=== PATIENT | male | born 1950 | race Caucasian/White ===

== ENCOUNTER 2021-04-21 23:19 | Inpatient (IN) | payer MEDICARE, MEDICAID ==
--- NOTE | 2021-04-21 23:30 | HISTORY & PHYSICAL EXAMINATION ---
Chief Complaint - Chief Complaint Chief Complaint: Nausea/vomiting. History of Present Illness - Admitted From Admitted From:: [facility] - History Obtained From Records Reviewed: Yes History obtained from: Patient, ER Physician from OS, Outside records - History of Present Illness HPI Comment/Other: This is a 78-year-old male with a past medical history significant for type 2 diabetes mellitus, hypertension, coronary artery disease, CKD who presented to an outside hospital today complaining of fevers and chills. He reportedly complained of dyspnea as well and the initial concern was for pneumonia. He was given ceftriaxone and azithromycin empirically. Imaging revealed no evidence of pneumonia and CT of the chest, abdomen, and pelvis revealed no acute abnormalities. His urinalysis was also unremarkable. The patient does have chronic bilateral lower extremity edema and wounds but these appear to be more erythematous today and indurated. The erythema is new for the patient and the concern was for cellulitis as the source of his infection as he presented with a fever and elevated white count of 20,000. He was then given vancomycin. His renal function was at baseline and his lactic acid within normal limits. Given there were no beds available at the outside hospital, the patient was transferred here for further management. The patient currently thousand he feels better compared to yesterday. He states he came and because of nausea and vomiting which began yesterday morning at 7 AM when he woke up. He also had left lower quadrant abdominal pain. He reports his last bowel movement was 2 days ago. He currently reports no more emesis. He does not feel short of breath and this also began over the past day or so. Denies any chest pain. He does report fever as well as chills and rigors at home. Denies any dysuria, hematuria. The only thing he has noticed over the past few days that his right leg became more erythematous especially over his calf. He states both of his legs are chronically edematous and can be erythematous at times but this is worse than usual. He does take Lasix at home He continues to smoke a pack a day and has been doing so for over 50 years. He was drinking alcohol on a regular basis up until a few months ago. He is not sure if he has cirrhosis but states he has been told he has liver problems in the past. He said he has a history of bladder cancer but this is in remission. He also tells me that he had 2 stents placed earlier this year at [facility] in [place] and that he also suffered from a cardiac arrest during that hospitalization. He does have diabetes but is not on insulin at home. We discussed goals of care and he would like to be a full code. History - Past Medical History Cardiovascular: reports: Congestive heart failure, Hypertension, Coronary artery disease, Peripheral Vascular Disease, Atrial fibrillation Endocrine/Autoimmune: reports: Type 2 diabetes GI: reports: Cirrhosis, Diverticulitis : reports: Renal insuffiency, Other (History of bladder cancer.) - Past Surgical History General: reports: Appendectomy Cardiovascular: reports: Coronary stent, Cardiac catheterization - Family & Social History Family History Comment/Other: He reports no family history to his knowledge. Living arrangement: At home Living Situation: With friend(s) Social History Notes: He reports living at home with a friend. He continues to smoke a pack a day. He has been doing this for over 50 years. He did drink 1/5 of liquor on a daily basis but quit a few months ago. He was doing this for about 30 years. Review of Systems - Constitutional Constitutional: reports: Fever, Chills - Ears, Nose & Throat Ears, Nose & Throat: denies: Nasal discharge, Nasal congestion - Cardiovascular Cariovascular: reports: Edema. denies: Chest pain, Lightheadedness, Decr. exercise tolerance - Respiratory Respiratory: reports: Cough, SOB at rest, SOB with exertion - Gastrointestinal Gastrointestinal: reports: Abdominal pain, Nausea, Vomiting. denies: Constipation, Diarrhea - Genitourinary Genitourinary: denies: Dysuria, Frequency, Urgency - Integumentary Integumentary: reports: Lesions, Pigment changes - Neurological Neurological: denies: General weakness, Focal weakness, Dizziness - All Other Systems All Other Systems: reports: Reviewed and negative Prior Level of Functionality: He is independent with his ADLs. Exam - Vital Signs Reviewed Vital Signs: Yes - Physical Exam General Appearance: positive: No acute distress, Alert Eyes Bilateral: positive: Normal inspection, Conjunctivae nml ENT: positive: ENT inspection nml Neck: positive: Nml inspection Respiratory: positive: No respiratory distress, Other (Diminished in the bases.). negative: Wheezes, Rales Cardiovascular: positive: Irregularly irregular. negative: Tachycardia, Systolic murmur Abdomen: positive: Nml bowel sounds, No distention, Tenderness (Left lower quadrant). negative: Guarding, Rebound Skin: positive: Warm, Dry, Other (There is chronic venous stasis changes over his bilateral lower extremities. There is also an area of erythema over the medial aspect of the right calf that is indurated, warm and tender to touch. Erythema is also present over the anterior aspect of the left lower extremity below the knee.) Extremities: positive: Pedal edema (+2 pitting edema in the bilateral lower extremities), Other (There are multiple small ulcerations over his bilateral lower extremities.) Neurologic/Psychiatric: positive: Motor nml. negative: Disoriented to person, Disoriented to place, Disoriented to time Sepsis Event Note (H) - Evaluation Current Stage of Sepsis: Sepsis Possible source of Sepsis: positive: Skin/soft tissue - Sepsis Criteria Sepsis Criteria: Recorded Temperature greater than 38.3C or Less than 36C, WBC count greater than 12,000 or less than 4000 Conclusion/Plan - Problem List (1) Sepsis Conclusion/Plan: This appears to be secondary to the cellulitis of the lower extremities. He presented with fever, leukocytosis. CT of the chest, abdomen, and pelvis revealed no acute abnormalities. His urinalysis did not suggest infection. Given his cellulitis appears to be purulent, we will keep him on vancomycin. He received ceftriaxone and azithromycin initially at the outside hospital as there was concern for pneumonia as he presented with dyspnea but imaging did not suggest this. We will therefore keep him on vancomycin alone. We will follow up blood cultures from the outside hospital. If these are positive then we will need to repeat blood cultures here. Trend his CBC. Check CRP. We will not administer further IV fluids given he is hypertensive and his lactic acid was within normal limits. He is also quite edematous. (2) Cellulitis of both lower extremities Conclusion/Plan: This appears to be the cause of his sepsis. He appears to have present cellulitis of the bilateral lower extremities although this appears worse in his right lower extremity. He received vancomycin at the outside hospital which we will continue. We will check a CRP and trend this. Follow-up of outside hospital blood cultures. Will order ultrasound of the right lower extremity to evaluate for potential abscess. (3) Nausea and vomiting Conclusion/Plan: Suspect this is related to the sepsis and underlying infection. He did undergo CT of the abdomen and pelvis at the outside hospital which showed no acute abnormalities. There was diverticulosis without diverticulitis. He also did have several mildly prominent mid small bowel segments but there was no evidence of obstruction. We will continue him on a diet and use Zofran as needed. (4) CKD (chronic kidney disease) Conclusion/Plan: He has CKD likely secondary to his type 2 diabetes mellitus. His creatinine is 1.8 which is around his baseline. We will monitor his renal function while he is on IV antibiotics. Qualifiers: Chronic kidney disease stage: stage 3 (moderate) (5) Atrial fibrillation Conclusion/Plan: His rate is currently in the low 100s. We will resume his home carvedilol and anticoagulation. If he remains tachycardic we can consider increasing his carvedilol. (6) Coronary artery disease Conclusion/Plan: He had stenting in July of this year at [facility] in [place]. We will continue anticoagulation with Eliquis per pharmacy policy although he is on Xarelto at home. We will continue aspirin daily as well as Lipitor. Troponin was within normal limits at outside hospital and EKG did not suggest ischemia. (7) Diastolic CHF Conclusion/Plan: BNP at outside hospital was over [address] did not reveal any pulmonary edema. He still did have a right pleural effusion. He is amatory now +2 but given he is septic, we will hold off on diuresis. We will also hold off on IV fluids given he is hypertensive without evidence of hypoperfusion. He will need to be diuresed at some point during his hospitalization. Qualifiers: Heart failure chronicity: chronic Qualified Code(s): I50.32 - Chronic diastolic (congestive) heart failure (8) COPD (chronic obstructive pulmonary disease) Conclusion/Plan: Stable and not in exacerbation. We will continue with albuterol as needed. (9) Hypertension Conclusion/Plan: He has been hypertensive at the outside hospital with systolics in the 150s. We will resume his home carvedilol, lisinopril, hydralazine. We will hold off on amlodipine at this time given his chronic lower extremity edema as this may be a contributing factor. (10) Type 2 diabetes mellitus Conclusion/Plan: He is on glipizide at home. His glucose was less than 200 at the outside hospital. We will start him on sliding scale and consider adding Lantus if necessary. Carb controlled diet. - Lab Results Lab results reviewed: Yes Other Lab Results: I reviewed the labs and the outside hospital. - Diagnostic Imaging Results Diagnostic Imaging Results: positive: Final report reviewed - EKG Results EKG Interpreted Independently: Yes EKG Comparison: No prior EKG EKG Findings: EKG reveals a tribulation with nonspecific ST segment changes. His rate was 105. Core Measures - Anticipated LOS I expect patient to be DC'd or transferred within 96 hours.: Yes - Issues Hospital Issues and Management Plan: 70-year-old male who presented to outside hospital found to have sepsis secondary to cellulitis of the lower extremities. He will be admitted for IV antibiotics as well as to trend his white count and follow-up cultures. - DVT/VTE - Prophylaxis VTE/DVT Device ordered at admit?: No Not Ordered - Medical Reason: Contraindicated VTE/DVT Prophylaxis med ordered at admit?: Yes
[2021-04-21] MEDS ORDERED: LACTATED RINGERS 1,000 ML IV SCH (23:45)
[2021-04-22] MEDS: SODIUM CHLORIDE FLUSH 0.9% 10 ML SYRINGE IVP SCH ×4 (01:23→23:54)
[2021-04-22] MEDS ORDERED: ONDANSETRON 4 MG/2 ML VIAL IVP PRN (01:59)
[2021-04-22] MEDS ORDERED: ONDANSETRON ODT 4 MG TABLET TL PRN (01:59)
[2021-04-22] MEDS ORDERED: VANCOMYCIN INJ 2 GM in SODIUM CHLORIDE 0.9% 500 ML IV SCH (03:00)
[2021-04-22] MEDS: oxyCODONE 5 MG TABLET PO PRN ×4 (03:06→19:30)
[2021-04-22] MEDS: ACETAMINOPHEN 325 MG TABLET PO PRN ×4 (03:06→23:54)
[2021-04-22] MEDS: hydrALAZINE 25 MG TABLET PO SCH ×3 (05:07→21:21)
[2021-04-22] MEDS: MORPHINE 2 MG/ML CARPUJECT IVP PRN ×5 (05:08→23:53)
[2021-04-22 06:14] LABS: BASOPHILS % (AUTO) 0.2 %; EOSINOPHILS % (AUTO) 0.1 %; HCT - HEMATOCRIT 30.4 % (42.0-52.0); HGB - HEMOGLOBIN 9.8 g/dL (14.0-18.0); LYMPHOCYTES # (AUTO) 0.6 10^3/uL (1.5-3.5); LYMPHOCYTES % (AUTO) 4.6 %; MEAN CORPUSCULAR HEMOGLOBIN 26.4 pg (27.0-31.0); MEAN CORPUSCULAR HGB CONC 32.2 g/dL (32.0-36.0); MEAN CORPUSCULAR VOLUME 81.9 fL (80.0-94.0); MEAN PLATELET VOLUME 9.9 fL (7.4-11.4); MONOCYTES # (AUTO) 0.9 10^3/uL (0.0-1.0); MONOCYTES % (AUTO) 7.2 %; NEUTROPHILS # (AUTO) 10.8 10^3/uL (1.5-6.6); NEUTROPHILS % (AUTO) 87.2 %; PLT - PLATELET COUNT 181 10^3/uL (130-450); RED BLOOD COUNT 3.71 10^6/uL (4.70-6.10); RED CELL DISTRIBUTION WIDTH 15.2 % (12.0-15.0); WHITE BLOOD COUNT 12.3 x10^3/uL (4.8-10.8)
[2021-04-22 06:48] LABS: CRP - C-REACTIVE PROTEIN 18.3 mg/dL (0-1.0); POTASSIUM 4.2 mmol/L (3.5-5.0)
[2021-04-22] MEDS: APIXABAN 5 MG TABLET PO SCH ×2 (08:15→20:47)
[2021-04-22] MEDS: carvediloL 12.5 MG TABLET PO SCH ×2 (08:15→20:47)
[2021-04-22] MEDS: ASPIRIN CHEW 81 MG TABLET PO SCH (08:15)
[2021-04-22] MEDS: NICOTINE 21 MG PATCH TOP SCH (08:16)
--- NOTE | 2021-04-22 08:49 | XRAY Report ---
PROCEDURE: Chest 1 View X-Ray INDICATIONS: SOB TECHNIQUE: One view of the chest was acquired. COMPARISON: None FINDINGS: Surgical changes and devices: None. Lungs and pleura: No pleural effusions or pneumothorax. Increased interstitial markings in both lung s with perihilar and central predominance. Patchy airspace opacity in the lung bases, much more prono unced on the right where there is an associated pleural effusion. Mediastinum: Mediastinal contours appear normal. Heart size is normal. Bones and chest wall: No suspicious bony lesions. Overlying soft tissues appear unremarkable. IMPRESSION: Increased interstitial and airspace markings in both lungs. Finds are favored to represent an infecti ous process in the right lung base with an adjacent pleural effusion. Although considered less likely , pulmonary edema could cause a similar appearance. Correlate with CBC and BNP. Reviewed by: Oliverio Wilcox MD on 04/22/2021 8:48 AM PST Approved by: Oliverio Wilcox MD on 04/22/2021 8:48 AM [facility] Station ID: [id number]
[2021-04-22] MEDS ORDERED: CEFEPIME 1 GM in SODIUM CHLORIDE 0.9% MINIBAG 100 ML IV SCH ×2 (09:00→09:30)
[2021-04-22] MEDS: INSULIN ASPART 300 UNIT/3 ML PEN SUBQ SCH ×4 (09:18→21:20)
[2021-04-22 10:11] LABS: B. PARAPERTUSSIS- RESP PCR PAN NOT DETECTED; B. PERTUSSIS- RESP PCR PANEL NOT DETECTED; C. PNEUMONIAE- RESP PCR PANEL NOT DETECTED; CORONAVIRUS 229E-RESP PCR NOT DETECTED; CORONAVIRUS HKU1-RESP PCR NOT DETECTED; CORONAVIRUS NL63-RESP PCR NOT DETECTED; CORONAVIRUS OC43-RESP PCR NOT DETECTED; HUMAN METAPNEUMOVIRUS NOT DETECTED; INFLUENZA A- RESP PCR PANEL NOT DETECTED; INFLUENZA B - RESP PCR PANEL NOT DETECTED; M. PNEUMONIAE- RESP PCR PANEL NOT DETECTED; PARAINFLUENZA VIRUS 1 NOT DETECTED; PARAINFLUENZA VIRUS 2 NOT DETECTED; PARAINFLUENZA VIRUS 3 NOT DETECTED; PARAINFLUENZA VIRUS 4 NOT DETECTED; RHINOVIRUS/ENTEROVIRUS NOT DETECTED; RSV- RESP PCR PANEL NOT DETECTED; SARS-CoV-2 -RESP PCR PANEL NOT DETECTED
[2021-04-22 10:57] LABS: ESTIMATED AVERAGE GLUCOSE 166 mg/dL (70-100); HEMOGLOBIN A1c% 7.4 % (4.27-6.07)
[2021-04-22] MEDS: MULTIVITAMIN W/MINERALS TABLET PO SCH (11:55)
--- NOTE | 2021-04-22 12:21 | PHARMACY PROGRESS NOTE ---
- Best Possible Medication History Admit Date and Time: 04/22/21 0115 Processed by: Pharmacy Medication History completed: Yes Patient Interview: Completed Secondary Source(s): Pharmacy records, Insurance records (PATIENT ABLE TO CONFIRM HOME MEDICATIONS ) As the person ultimately responsible for medication therapy, providers are able to order a medication from an existing home medication list in [facility] via the "Reconcile Routine" prior to Confirmation of that medication by pharmacy retail support specialist. Such practice is discouraged except when the physician, in their clinical judgment, deems that a medical need exists for a medication without regard to previous use.
[2021-04-22 13:19] LABS: MUDS CUTOFF CONCENTRATIONS CUTOFF CONC BELOW:
[2021-04-22] MEDS: GABAPENTIN 100 MG CAPSULE PO SCH ×2 (13:19→21:20)
[2021-04-22] MEDS: SODIUM CHLORIDE FLUSH 0.9% 10 ML SYRINGE IVP PRN (13:25)
[2021-04-22] MEDS ORDERED: hydrALAZINE INJ 20 MG/ML VIAL IVP PRN (13:30)
[2021-04-22 13:50] LABS: AMPHETAMINE SCREEN,URINE NEGATIVE (NEGATIVE); BARBITURATE SCREEN,UR NEGATIVE (NEGATIVE); BENZODIAZEPINES SCREEN, URINE NEGATIVE (NEGATIVE); COCAINE SCREEN URINE NEGATIVE (NEGATIVE); METHADONE SCREEN, URINE NEGATIVE (NEGATIVE); METHAMPHETAMINES SCREEN, URINE NEGATIVE (NEGATIVE); OPIATE SCREEN, URINE POSITIVE (NEGATIVE); OXYCODONE SCREEN, URINE POSITIVE (NEGATIVE); PROPOXYPHENE SCREEN, URINE NEGATIVE (NEGATIVE); THC CANNABINOID SCREEN, URINE NEGATIVE (NEGATIVE); TRICYCLIC ANTIDEPRESSANT,URINE NEGATIVE (NEGATIVE)
[2021-04-22] MEDS: ISOSORBIDE MONONITRATE ER 30 MG TABLET PO SCH (14:49)
[2021-04-22] MEDS: amLODIPine 5 MG TABLET PO SCH (14:49)
--- NOTE | 2021-04-22 15:42 | Ultrasound Report ---
PROCEDURE: Duplex Ext Veins Bilateral INDICATIONS: Edema. Cellulitis. TECHNIQUE: Real-time imaging, as well as color and pulse Doppler interrogation, were performed of the deep veins of both legs from the inguinal ligament to the popliteal fossa. COMPARISON: None. FINDINGS: VASCULATURE: Normal spontaneous flow and phasicity, augmentation and waveforms, and compressibility o f the vessels from the common femoral veins through the calf veins. SOFT TISSUES: Bilateral lower extremity edema. Prominent bilateral inguinal lymph nodes are seen, which may be reactive. IMPRESSION: 1.No sonographic evidence of deep venous thrombus. Reviewed by: Romain Villarreal MD on 04/22/2021 3:40 PM PST Approved by: Romain Villarreal MD on 04/22/2021 3:40 PM [facility] Station ID: [id number]
--- NOTE | 2021-04-22 16:19 | Ultrasound Report ---
PROCEDURE: Duplex Lwr Ext Arterial Bilat INDICATIONS: PAD. Leg ulcers. TECHNIQUE: Color and pulse Doppler interrogation was performed of both lower extremity arterial systems, with im age documentation. COMPARISON: None FINDINGS: Right lower extremity: Common femoral artery: 145.8 cm/sec, with biphasic flow. Deep femoral artery: 138.7 cm/sec, with biphasic flow. Proximal superficial femoral artery: 145.8 cm/sec, with monophasic flow. Mid superficial femoral artery: 70.5 cm/sec, with monophasic flow. Distal superficial femoral artery: 96.2 cm/sec, with monophasic flow. Popliteal artery: 69.8 cm/sec, with monophasic flow. Posterior tibial artery: 96.8 cm/sec, with monophasic flow. Anterior tibial artery/dorsalis pedis: 30.4 cm/sec, with biphasic flow. العلي-scale imaging description: Heavy calcified plaque is seen in the right lower extremity. Left lower extremity: Common femoral artery: 127.5 cm/sec, with biphasic flow. Deep femoral artery: 204.5 cm/sec, with biphasic flow. Proximal superficial femoral artery: 183.8 cm/sec, with monophasic flow. Mid superficial femoral artery: 176.0 cm/sec, with monophasic flow. Distal superficial femoral artery: 141.7 cm/sec, with monophasic flow. Popliteal artery: 107.1 cm/sec, with monophasic flow. Posterior tibial artery: 13.5 cm/sec, with monophasic flow. Anterior tibial artery/dorsalis pedis: 145 cm/sec, with 76.4 flow. العلي-scale imaging description: Heavy calcified plaque is seen in the left lower extremity. IMPRESSION: 1. Severe plaque in both lower extremities with diffuse disease. 2. No evidence of focal stenosis. Reviewed by: Servando Holland on 04/22/2021 4:18 PM PST Approved by: Servando Holland on 04/22/2021 4:18 PM PST Station ID: [id number]
[2021-04-22] MEDS: SACCHAROMYCES BOULARDII 250 MG CAPSULE PO SCH (17:12)
[2021-04-22] MEDS: ATORVASTATIN 40 MG TABLET PO SCH (20:47)
[2021-04-22] MEDS: VANCOMYCIN INJ 1 GM, VANCOMYCIN INJ 500 MG in SODIUM CHLORIDE 0.9% 500 ML IV SCH (23:58)
[2021-04-23] MEDS: IPRATROPIUM/ALBUTEROL 3 ML NEB INH PRN ×3 (00:37→18:00)
[2021-04-23] MEDS: oxyCODONE 5 MG TABLET PO PRN ×2 (02:19→21:10)
[2021-04-23] MEDS: SODIUM CHLORIDE FLUSH 0.9% 10 ML SYRINGE IVP PRN ×3 (02:20→21:40)
[2021-04-23] MEDS: GABAPENTIN 100 MG CAPSULE PO SCH ×3 (05:34→21:10)
[2021-04-23] MEDS: hydrALAZINE 25 MG TABLET PO SCH ×3 (05:34→21:10)
[2021-04-23] MEDS: LEVOTHYROXINE 25 MCG TABLET PO SCH (06:21)
[2021-04-23 06:39] LABS: BASOPHILS % (AUTO) 0.1 %; EOSINOPHILS # (AUTO) 0.1 10^3/uL (0.0-0.7); EOSINOPHILS % (AUTO) 1.2 %; HCT - HEMATOCRIT 30.8 % (42.0-52.0); HGB - HEMOGLOBIN 9.8 g/dL (14.0-18.0); LYMPHOCYTES # (AUTO) 0.5 10^3/uL (1.5-3.5); LYMPHOCYTES % (AUTO) 5.6 %; MEAN CORPUSCULAR HEMOGLOBIN 26.6 pg (27.0-31.0); MEAN CORPUSCULAR HGB CONC 31.8 g/dL (32.0-36.0); MEAN CORPUSCULAR VOLUME 83.5 fL (80.0-94.0); MEAN PLATELET VOLUME 10.6 fL (7.4-11.4); MONOCYTES # (AUTO) 0.8 10^3/uL (0.0-1.0); MONOCYTES % (AUTO) 8.1 %; NEUTROPHILS % (AUTO) 84.4 %; PLT - PLATELET COUNT 176 10^3/uL (130-450); RED BLOOD COUNT 3.69 10^6/uL (4.70-6.10); RED CELL DISTRIBUTION WIDTH 15.3 % (12.0-15.0); WHITE BLOOD COUNT 9.5 x10^3/uL (4.8-10.8)
[2021-04-23 07:13] LABS: CALCIUM 7.9 mg/dL (8.5-10.3); CRP - C-REACTIVE PROTEIN 20.6 mg/dL (0-1.0); POTASSIUM 4.6 mmol/L (3.5-5.0)
[2021-04-23] MEDS: INSULIN ASPART 300 UNIT/3 ML PEN SUBQ SCH ×5 (08:05→21:09)
[2021-04-23] MEDS: MORPHINE 2 MG/ML CARPUJECT IVP PRN ×3 (08:07→18:33)
[2021-04-23] MEDS: NICOTINE 21 MG PATCH TOP SCH (08:11)
[2021-04-23] MEDS: ASPIRIN CHEW 81 MG TABLET PO SCH (08:12)
[2021-04-23] MEDS: SACCHAROMYCES BOULARDII 250 MG CAPSULE PO SCH ×2 (08:13→16:52)
[2021-04-23] MEDS: guaiFENesin 600 MG TABLET PO SCH (08:13)
[2021-04-23] MEDS: APIXABAN 5 MG TABLET PO SCH ×2 (08:13→21:09)
[2021-04-23] MEDS: ISOSORBIDE MONONITRATE ER 30 MG TABLET PO SCH (08:14)
[2021-04-23] MEDS: buPROPion XL 150 MG TABLET PO SCH (08:14)
[2021-04-23] MEDS: carvediloL 12.5 MG TABLET PO SCH ×2 (08:15→21:09)
[2021-04-23] MEDS: MULTIVITAMIN W/MINERALS TABLET PO SCH (08:15)
[2021-04-23] MEDS: amLODIPine 5 MG TABLET PO SCH (08:16)
[2021-04-23] MEDS: SODIUM CHLORIDE FLUSH 0.9% 10 ML SYRINGE IVP SCH ×2 (08:18→16:52)
[2021-04-23] MEDS: cefTRIAXone 1 GM in SODIUM CHLORIDE 0.9% MINIBAG 100 ML IV SCH (08:19)
[2021-04-23] MEDS ORDERED: lisinopriL 5 MG TABLET PO SCH (09:00)
[2021-04-23] MEDS: BENZOCAINE/MENTHOL LOZENGE MM PRN ×2 (09:47→20:05)
--- NOTE | 2021-04-23 12:22 | PROVIDER PROGRESS NOTE ---
Subjective - Prog Note Date Prog Note Date: 04/23/21 Prog Note Time: 12:20 - Subjective Pt reports feeling: Improved Subjective: He had a sudden sensation that he was closing of his throat this morning. It frightened him tremendously and he has been hyperventilating. During the episode his blood pressure was stable, O2 sats were stable, on examination did not have any stridor, wheezing, Crackles and his oral exam was normal. He still pretty rattled from it. It lasted about 5 minutes. Sitting up in bed, eating ice chips. Current Medications - Current Medications Current Medications: Active Medications Acetaminophen (Acetaminophen 325 Mg Tablet) 650 mg PO Q4HR PRN PRN Reason: Pain or Fever > 38C (100.4F) Last Admin: 04/22/21 23:54 Dose: 650 mg Documented by: Albuterol (Albuterol Neb 2.5 Mg/3 Ml) 2.5 mg INH RTQ4H PRN PRN Reason: Wheezing Albuterol/Ipratropium (Ipratropium/Albuterol 3 Ml Neb) 3 ml INH RTQID PRN PRN Reason: Shortness of Air/Wheezing Last Admin: 04/23/21 07:33 Dose: 3 ml Documented by: Amlodipine Besylate (Amlodipine 5 Mg Tablet) 5 mg PO DAILY [facility] Last Admin: 04/23/21 08:16 Dose: 5 mg Documented by: Apixaban (Apixaban 5 Mg Tablet) 5 mg PO BID [facility] Last Admin: 04/23/21 08:13 Dose: 5 mg Documented by: Aspirin (Aspirin Chew 81 Mg Tablet) 81 mg PO DAILY [facility] Last Admin: 04/23/21 08:12 Dose: 81 mg Documented by: Atorvastatin Calcium (Atorvastatin 40 Mg Tablet) 40 mg PO QPM [facility] Last Admin: 04/22/21 20:47 Dose: 40 mg Documented by: Bupropion HCl (Bupropion Xl 150 Mg Tablet) 300 mg PO DAILY [facility] Last Admin: 04/23/21 08:14 Dose: 300 mg Documented by: Carvedilol (Carvedilol 12.5 Mg Tablet) 12.5 mg PO BID [facility] Last Admin: 04/23/21 08:15 Dose: 12.5 mg Documented by: Gabapentin (Gabapentin 100 Mg Capsule) 100 mg PO TID [facility] Last Admin: 04/23/21 05:34 Dose: 100 mg Documented by: Guaifenesin (Guaifenesin 600 Mg Tablet) 600 mg PO DAILY [facility] Last Admin: 04/23/21 08:13 Dose: 600 mg Documented by: Hydralazine HCl (Hydralazine 25 Mg Tablet) 50 mg PO TID [facility] Last Admin: 04/23/21 05:34 Dose: 50 mg Documented by: Hydralazine HCl (Hydralazine Inj 20 Mg/Ml Vial) 10 mg IVP TID PRN PRN Reason: Hypertensive Emergency Vancomycin HCl 1 gm/Vancomycin HCl 500 mg/ Sodium Chloride 500 mls @ 250 mls/hr IV Q24H [facility] Last Infusion: 04/23/21 02:30 Dose: Infused Documented by: Ceftriaxone Sodium 1 gm/ (Sodium Chloride) 100 mls @ 200 mls/hr IV DAILY [facility] Last Infusion: 04/23/21 11:56 Dose: Infused Documented by: Insulin Aspart (Insulin Aspart 300 Unit/3 Ml Pen) 1 - 9 unit SUBQ 0800,1200,1700,2100 [facility]; Protocol Last Admin: 04/23/21 12:15 Dose: 3 unit Documented by: Isosorbide Mononitrate (Isosorbide Mononitrate Er 30 Mg Tablet) 30 mg PO DAILY [facility] Last Admin: 04/23/21 08:14 Dose: 30 mg Documented by: Levothyroxine Sodium (Levothyroxine 25 Mcg Tablet) 25 mcg PO QDAC [facility] Last Admin: 04/23/21 06:21 Dose: 25 mcg Documented by: Morphine Sulfate (Morphine 2 Mg/Ml Carpuject) 2 mg IVP Q4HR PRN PRN Reason: PAIN Last Admin: 04/23/21 08:07 Dose: 2 mg Documented by: Multivitamins/Minerals (Multivitamin W/Minerals Tablet) 1 tab PO DAILYWM [facility] Last Admin: 04/23/21 08:15 Dose: 1 tab Documented by: Nicotine (Nicotine 21 Mg Patch) 1 patch TOP DAILY [facility] Last Admin: 04/23/21 08:11 Dose: 1 patch Documented by: Ondansetron HCl (Ondansetron Odt 4 Mg Tablet) 4 mg TL Q4HR PRN PRN Reason: Nausea / Vomiting Last Admin: 04/23/21 08:52 Dose: 4 mg Documented by: Ondansetron HCl (Ondansetron 4 Mg/2 Ml Vial) 4 mg IVP Q6HR PRN PRN Reason: Nausea / Vomiting Oxycodone HCl (Oxycodone 5 Mg Tablet) 5 mg PO Q4HR PRN PRN Reason: PAIN Last Admin: 04/23/21 02:19 Dose: 5 mg Documented by: Saccharomyces Boulardii (Saccharomyces Boulardii 250 Mg Capsule) 250 mg PO BIDWM [facility] Last Admin: 04/23/21 08:13 Dose: 250 mg Documented by: Sodium Chloride (Sodium Chloride Flush 0.9% 10 Ml Syringe) 10 ml IVP PRN PRN PRN Reason: NEEDED PER PROVIDER ORDERS Last Admin: 04/23/21 02:20 Dose: 10 ml Documented by: Sodium Chloride (Sodium Chloride Flush 0.9% 10 Ml Syringe) 10 ml IVP 0100,0900,1700 [facility] Last Admin: 04/23/21 08:18 Dose: 10 ml Documented by: Throat Lozenges (Benzocaine/Menthol Lozenge) 1 lozenge MM Q2HR PRN PRN Reason: Throat pain Last Admin: 04/23/21 09:47 Dose: 1 lozenge Documented by: Albuterol Sulfate [Proair Hfa Inhaler] 2 puffs PO Q4H PRN 04/22/21 Aspirin [Aspirin EC] 81 mg PO DAILY 04/22/21 Atorvastatin Calcium 40 mg PO QPM 04/22/21 Furosemide [Lasix] 40 mg PO DAILY 04/22/21 Gabapentin [Neurontin] 300 mg PO BID PRN 04/22/21 Glipizide [Glipizide ER] 2.5 mg PO DAILY 04/22/21 Hydralazine HCl 50 mg PO TID 04/22/21 Isosorbide Mononitrate ER [Imdur] 30 mg PO DAILY 04/22/21 Levothyroxine [Synthroid] 25 mcg PO DAILY 04/22/21 Metoprolol Tartrate [Lopressor] 25 mg PO BID 04/22/21 Potassium Chloride 20 meq PO DAILY 04/22/21 Rivaroxaban [Xarelto] 15 mg PO DAILY 04/22/21 Sertraline [Zoloft] 50 mg PO DAILY 04/22/21 Tiotropium [place] [Spiriva] 1 cap PO DAILY 04/22/21 amLODIPine [Norvasc] 5 mg PO DAILY 04/22/21 buPROPion HCL [Bupropion Xl] 300 mg PO DAILY 04/22/21 carvediloL [Coreg] 12.5 mg PO BID 04/22/21 lisinopriL [Zestril] 5 mg PO DAILY 04/22/21 predniSONE [Deltasone] 10 mg PO DAILY 04/22/21 traZODone [Desyrel] 100 mg PO QPM 04/22/21 Objective - Vital Signs/Intake & Output Reviewed Vital Signs: Yes Vital Signs: Vital Signs x48h Temp Pulse Pulse Resp BP BP Pulse Ox 04/23/21 08:00 87 20 150/82 H 96 04/23/21 07:53 36.8 C 83 20 131/91 H 96 04/23/21 07:34 88 18 04/23/21 05:37 84 145/70 H 04/23/21 04:51 36.9 C 84 20 134/78 H 94 Intake & Output: Intake & Output 04/20/21 04/21/21 04/22/21 04/23/21 23:59 23:59 23:59 23:59 Intake Total 740 1940 Output Total 325 1050 Balance 415 890 - Objective General Appearance: positive: No acute distress, Alert, Other (6 foot tall, 108 kg, sitting upright in bed, leaning forward with legs crossed and he is feeding himself ice chips from a cup.) Eyes Bilateral: positive: PERRL, EOMI ENT: positive: Pharynx nml, No signs of dehydration. negative: Purulent nasal drainage, Pharyngeal erythema, Oral lesions Neck: positive: No JVD. negative: Stiff neck Respiratory: positive: No respiratory distress. negative: Wheezes, Rales, Rhonchi Cardiovascular: positive: Regular rate & rhythm. negative: Gallop/S4, Friction rub Abdomen: positive: Non-tender, No organomegaly, Nml bowel sounds, No distention Skin: positive: Other (right calf red, hot. R pierce pink w multiple coin size areas of exoriation and skin breakdown. L calf and L pierce pink with rough thick coin size bulbous growths on pierce. The L LE has shrunken and you can see wrinkled skin. The R still swollen.) Extremities: positive: Full ROM, Pedal edema (see skin above) Neurologic/Psychiatric: positive: Oriented x3, CN's nml (2-12), Motor nml - Lab Results Fish Bones: 04/23/21 06:31 04/23/21 06:31 Other Labs: Lab Results x24hrs 04/23/21 04/23/21 04/23/21 Range/Units 11:23 07:47 06:31 WBC (4.8-10.8) x10^3/uL RBC (4.70-6.10) 10^6/uL Hgb (14.0-18.0) g/dL Hct (42.0-52.0) % MCV (80.0-94.0) fL MCH (27.0-31.0) pg MCHC (32.0-36.0) g/dL RDW (12.0-15.0) % Plt Count (130-450) 10^3/uL MPV (7.4-11.4) fL Neut # (Auto) (1.5-6.6) 10^3/uL Lymph # (Auto) (1.5-3.5) 10^3/uL [place] # (Auto) (0.0-1.0) 10^3/uL Eos # (Auto) (0.0-0.7) 10^3/uL Baso # (Auto) (0.0-0.1) 10^3/uL Absolute Nucleated RBC x10^3/uL Nucleated RBC % /100WBC Sodium 130 L (135-145) mmol/L Potassium 4.6 (3.5-5.0) mmol/L Chloride 97 L (101-111) mmol/L Carbon Dioxide 26 (21-32) mmol/L Anion Gap 7.0 (6-13) BUN 32 H (6-20) mg/dL Creatinine 2.0 H (0.6-1.2) mg/dL Estimated GFR (MDRD) 33 L (>89) Glucose 180 H (70-100) mg/dL POC Whole Bld Glucose 219 H 177 H (70 - 100) mg/dL Calcium 7.9 L (8.5-10.3) mg/dL C-Reactive Protein 20.6 H (0-1.0) mg/dL Urine Opiates Screen (NEGATIVE) Ur Oxycodone Screen (NEGATIVE) Urine Methadone Screen (NEGATIVE) Ur Propoxyphene Screen (NEGATIVE) Ur Barbiturates Screen (NEGATIVE) Ur Tricyclics Screen (NEGATIVE) Ur Phencyclidine Scrn (NEGATIVE) Ur Amphetamine Screen (NEGATIVE) U Methamphetamines Scrn (NEGATIVE) U Benzodiazepines Scrn (NEGATIVE) Urine Cocaine Screen (NEGATIVE) U Cannabinoids Screen (NEGATIVE) 04/23/21 04/22/21 04/22/21 Range/Units 06:31 20:59 16:56 WBC 9.5 (4.8-10.8) x10^3/uL RBC 3.69 L (4.70-6.10) 10^6/uL Hgb 9.8 L (14.0-18.0) g/dL Hct 30.8 L (42.0-52.0) % MCV 83.5 (80.0-94.0) fL MCH 26.6 L (27.0-31.0) pg MCHC 31.8 L (32.0-36.0) g/dL RDW 15.3 H (12.0-15.0) % Plt Count 176 (130-450) 10^3/uL MPV 10.6 (7.4-11.4) fL Neut # (Auto) 8.0 H (1.5-6.6) 10^3/uL Lymph # (Auto) 0.5 L (1.5-3.5) 10^3/uL [place] # (Auto) 0.8 (0.0-1.0) 10^3/uL Eos # (Auto) 0.1 (0.0-0.7) 10^3/uL Baso # (Auto) 0.0 (0.0-0.1) 10^3/uL Absolute Nucleated RBC 0.00 x10^3/uL Nucleated RBC % 0.0 /100WBC Sodium (135-145) mmol/L Potassium (3.5-5.0) mmol/L Chloride (101-111) mmol/L Carbon Dioxide (21-32) mmol/L Anion Gap (6-13) BUN (6-20) mg/dL Creatinine (0.6-1.2) mg/dL Estimated GFR (MDRD) (>89) Glucose (70-100) mg/dL POC Whole Bld Glucose 200 H 159 H (70 - 100) mg/dL Calcium (8.5-10.3) mg/dL C-Reactive Protein (0-1.0) mg/dL Urine Opiates Screen (NEGATIVE) Ur Oxycodone Screen (NEGATIVE) Urine Methadone Screen (NEGATIVE) Ur Propoxyphene Screen (NEGATIVE) Ur Barbiturates Screen (NEGATIVE) Ur Tricyclics Screen (NEGATIVE) Ur Phencyclidine Scrn (NEGATIVE) Ur Amphetamine Screen (NEGATIVE) U Methamphetamines Scrn (NEGATIVE) U Benzodiazepines Scrn (NEGATIVE) Urine Cocaine Screen (NEGATIVE) U Cannabinoids Screen (NEGATIVE) 04/22/21 Range/Units 13:15 WBC (4.8-10.8) x10^3/uL RBC (4.70-6.10) 10^6/uL Hgb (14.0-18.0) g/dL Hct (42.0-52.0) % MCV (80.0-94.0) fL MCH (27.0-31.0) pg MCHC (32.0-36.0) g/dL RDW (12.0-15.0) % Plt Count (130-450) 10^3/uL MPV (7.4-11.4) fL Neut # (Auto) (1.5-6.6) 10^3/uL Lymph # (Auto) (1.5-3.5) 10^3/uL [place] # (Auto) (0.0-1.0) 10^3/uL Eos # (Auto) (0.0-0.7) 10^3/uL Baso # (Auto) (0.0-0.1) 10^3/uL Absolute Nucleated RBC x10^3/uL Nucleated RBC % /100WBC Sodium (135-145) mmol/L Potassium (3.5-5.0) mmol/L Chloride (101-111) mmol/L Carbon Dioxide (21-32) mmol/L Anion Gap (6-13) BUN (6-20) mg/dL Creatinine (0.6-1.2) mg/dL Estimated GFR (MDRD) (>89) Glucose (70-100) mg/dL POC Whole Bld Glucose (70 - 100) mg/dL Calcium (8.5-10.3) mg/dL C-Reactive Protein (0-1.0) mg/dL Urine Opiates Screen POSITIVE H (NEGATIVE) Ur Oxycodone Screen POSITIVE H (NEGATIVE) Urine Methadone Screen NEGATIVE (NEGATIVE) Ur Propoxyphene Screen NEGATIVE (NEGATIVE) Ur Barbiturates Screen NEGATIVE (NEGATIVE) Ur Tricyclics Screen NEGATIVE (NEGATIVE) Ur Phencyclidine Scrn NEGATIVE (NEGATIVE) Ur Amphetamine Screen NEGATIVE (NEGATIVE) U Methamphetamines Scrn NEGATIVE (NEGATIVE) U Benzodiazepines Scrn NEGATIVE (NEGATIVE) Urine Cocaine Screen NEGATIVE (NEGATIVE) U Cannabinoids Screen NEGATIVE (NEGATIVE) ABX Reporting Has patient been on IV antibiotics over the past 48 hours?: Yes Sepsis Event Note (H) - Evaluation Current Stage of Sepsis: Sepsis Possible source of Sepsis: positive: Skin/soft tissue - Sepsis Criteria Sepsis Criteria: Recorded Temperature greater than 38.3C or Less than 36C, WBC count greater than 12,000 or less than 4000 Assessment/Plan - Problem List (1) Sepsis Impression: This appears to be secondary to the cellulitis of the lower extremities. He presented with fever, leukocytosis. CT of the chest, abdomen, and pelvis revealed no acute abnormalities. His urinalysis did not suggest infection. Given his cellulitis appears to be purulent, Is on vancomycin. He received ceftriaxone and azithromycin initially at the outside hospital as there was concern for pneumonia as he presented with dyspnea but our imaging did not suggest this. We will therefore keep him on vancomycin alone. White cell count started at 12.3 and is now 9.5 today. He has not had a fever while here. Pulse was 91 when he hit the emergency room and he has been consistently in the 80s. As such sepsis criteria have resolved. Plan: Call outside hospital to get blood culture results to see if they are positive. If those are positive we will need to repeat blood cultures here. Trend his CBC, C-reactive protein. (2) Cellulitis of both lower extremities Conclusion/Plan: This appears to be the cause of his sepsis. He appears to have present cellulitis of the bilateral lower extremities although this appears worse in his right lower extremity. He received vancomycin at the outside hospital which we will continue. White cell count is now normal. C-reactive protein 18.3 on admission. 20.6 today. Plan: Continue vancomycin, day 2 Get those blood culture results Continue to trend C-reactive protein (3) Nausea and vomiting, Resolved Conclusion/Plan: Suspect this is related to the sepsis and underlying infection. He did undergo CT of the abdomen and pelvis at the outside hospital which showed no acute abnormalities. There was diverticulosis without diverticulitis. He also did have several mildly prominent mid small bowel segments but there was no evidence of obstruction. We will continue him on a diet and use Zofran as needed. (4) CKD (chronic kidney disease) Conclusion/Plan: He has CKD likely secondary to his type 2 diabetes mellitus. We will monitor his renal function while he is on IV antibiotics. Vancomycin will be adjusted. He was 1.8 at the outside facility with his creatinine. Yesterday and today he was 2.0. Qualifiers: Chronic kidney disease stage: stage 3 (moderate) (5) Atrial fibrillation Conclusion/Plan: His rate on presentation to our emergency room was in the low 100s. We have resumed his carvedilol and anticoagulation. Currently pulse is in the 80s. No change in management for now (6) Coronary artery disease Conclusion/Plan: He had stenting in July of this year at [facility] in [place]. We will continue anticoagulation with Eliquis per pharmacy policy although he is on Xarelto at home. We will continue aspirin daily as well as Lipitor. Troponin was within normal limits at outside hospital and EKG did not suggest ischemia. (7) Diastolic CHF Conclusion/Plan: BNP at outside hospital was over [address] did not reveal any pulmonary edema. He still did have a right pleural effusion. Given he was septic, we held off on diuresis. We also held off on IV fluids given he is hypertensive without evidence of hypoperfusion. He will need to be diuresed at some point during his hospitalization. In view of his creatinine being 2.0, will hold off on diuresis today. Qualifiers: Heart failure chronicity: chronic Qualified Code(s): I50.32 - Chronic diastolic (congestive) heart failure (8) COPD (chronic obstructive pulmonary disease) Conclusion/Plan: Stable and not in exacerbation. We will continue with albuterol as needed. (9) Hypertension Conclusion/Plan: He has been hypertensive at the outside hospital with systolics in the 150s. His admitting hospitalist stated that the he was going to resume his home carvedilol, lisinopril, hydralazine. We held off on amlodipine at this time given his chronic lower extremity edema as this may be a contributing factor. Today he is consistently in the 150s systolic. Norvasc was resumed in spite of discussion about not resuming it. He is on Coreg but no hydralazine or lisinopril. Pills initially started but stopped. The thought process was the creatinine of 2.0. He is on hydralazine as needed. (10) Type 2 diabetes mellitus Conclusion/Plan: He is on glipizide at home. His glucose was less than 200 at the outside hospital. We will start him on sliding scale and consider adding Lantus if necessary. Carb controlled diet.Glucose yesterday was 139, 161, 159, 200. Today he is 177, 219. I will add fixed dose nutritional 3 units and continue the sliding scale.
[2021-04-23] MEDS: ATORVASTATIN 40 MG TABLET PO SCH (21:09)
[2021-04-23] MEDS ORDERED: FUROSEMIDE 40 MG/4 ML VIAL IVP STA (21:15)
[2021-04-23] MEDS: ALBUTEROL NEB 2.5 MG/3 ML INH PRN (21:21)
--- NOTE | 2021-04-23 21:44 | XRAY Report ---
PROCEDURE: Chest 1 View X-Ray INDICATIONS: Dyspnea. Wheezing. TECHNIQUE: One view of the chest was acquired. COMPARISON: 04/22/2021 FINDINGS: Surgical changes and devices: None. Lungs and pleura: Diffuse interstitial prominence as before. Interval increase in size of right pleur al effusion with associated compressive atelectasis. Mild interval increase in patchy right midlung z one opacities. Streaky left basilar opacities have also increased slightly. Mediastinum: Accounting for patient positioning and slight rotation, cardiomediastinal contours appea r stable. Heart size is normal. Bones and chest wall: No suspicious bony lesions. Overlying soft tissues appear unremarkable. IMPRESSION: Diffuse interstitial prominence as before with interval increase in size of right pleural effusion. T here is increased right basilar airspace opacities likely representing associated compressive atelect asis reflective of increased size of pleural effusion. Findings are again favored to represent an inf ectious process although asymmetric pulmonary edema may have a similar appearance. Reviewed by: Ricardo Merino MD on 04/23/2021 9:43 PM PST Approved by: Ricardo Merino MD on 04/23/2021 9:43 PM PST Station ID: [id number]
[2021-04-23] MEDS: VANCOMYCIN INJ 1 GM, VANCOMYCIN INJ 500 MG in SODIUM CHLORIDE 0.9% 500 ML IV SCH (23:29)
[2021-04-23] MEDS ORDERED: traZODone 50 MG TABLET PO STA (23:40)
[2021-04-24] MEDS: SODIUM CHLORIDE FLUSH 0.9% 10 ML SYRINGE IVP SCH ×3 (00:10→17:28)
[2021-04-24] MEDS: SODIUM CHLORIDE FLUSH 0.9% 10 ML SYRINGE IVP PRN (01:36)
[2021-04-24] MEDS: MORPHINE 2 MG/ML CARPUJECT IVP PRN ×3 (04:02→15:30)
[2021-04-24] MEDS: hydrALAZINE 25 MG TABLET PO SCH ×3 (05:37→21:27)
[2021-04-24] MEDS: GABAPENTIN 100 MG CAPSULE PO SCH ×3 (05:37→21:27)
[2021-04-24] MEDS: LEVOTHYROXINE 25 MCG TABLET PO SCH (05:37)
[2021-04-24] MEDS: oxyCODONE 5 MG TABLET PO PRN ×2 (05:49→19:54)
[2021-04-24 05:52] LABS: BASOPHILS % (AUTO) 0.1 %; EOSINOPHILS # (AUTO) 0.1 10^3/uL (0.0-0.7); EOSINOPHILS % (AUTO) 1.3 %; HCT - HEMATOCRIT 28.7 % (42.0-52.0); HGB - HEMOGLOBIN 9.2 g/dL (14.0-18.0); LYMPHOCYTES # (AUTO) 0.6 10^3/uL (1.5-3.5); LYMPHOCYTES % (AUTO) 8.1 %; MEAN CORPUSCULAR HEMOGLOBIN 26.1 pg (27.0-31.0); MEAN CORPUSCULAR HGB CONC 32.1 g/dL (32.0-36.0); MEAN CORPUSCULAR VOLUME 81.3 fL (80.0-94.0); MEAN PLATELET VOLUME 10.9 fL (7.4-11.4); MONOCYTES # (AUTO) 0.8 10^3/uL (0.0-1.0); MONOCYTES % (AUTO) 10.1 %; NEUTROPHILS # (AUTO) 6.2 10^3/uL (1.5-6.6); NEUTROPHILS % (AUTO) 79.6 %; PLT - PLATELET COUNT 190 10^3/uL (130-450); RED BLOOD COUNT 3.53 10^6/uL (4.70-6.10); RED CELL DISTRIBUTION WIDTH 15.1 % (12.0-15.0); WHITE BLOOD COUNT 7.8 x10^3/uL (4.8-10.8)
[2021-04-24 06:10] LABS: CALCIUM 7.9 mg/dL (8.5-10.3); CREATININE 1.8 mg/dL (0.6-1.2); CRP - C-REACTIVE PROTEIN 16.8 mg/dL (0-1.0); POTASSIUM 4.1 mmol/L (3.5-5.0)
--- NOTE | 2021-04-24 07:48 | PROVIDER PROGRESS NOTE ---
Subjective - Prog Note Date Prog Note Date: 04/24/21 Prog Note Time: 09:20 - Subjective Pt reports feeling: Improved Subjective: Overall, both legs have become smaller. Left leg is almost back to baseline. The right leg to shrink on the tib-fib area, and in the distal calf area. He states that as his right leg is been shrinking he has been developing a discrete fluctuance and tenseness in the medial upper calf that is agonizing Naresh painful to touch. He feels like "it is going to blow and leave me a big hole". No fevers during this admission. White cell count was 12.3 and has normalized since April 23. He denies any new complaints. No chest pain, palpitations, shortness of breath. He just cannot believe how much it hurts to weight-bear on the right leg Current Medications - Current Medications Current Medications: Active Medications Acetaminophen (Acetaminophen 325 Mg Tablet) 650 mg PO Q4HR PRN PRN Reason: Pain or Fever > 38C (100.4F) Last Admin: 04/22/21 23:54 Dose: 650 mg Documented by: Albuterol (Albuterol Neb 2.5 Mg/3 Ml) 2.5 mg INH RTQ4H PRN PRN Reason: Wheezing Last Admin: 04/23/21 21:21 Dose: 2.5 mg Documented by: Albuterol/Ipratropium (Ipratropium/Albuterol 3 Ml Neb) 3 ml INH RTQID PRN PRN Reason: Shortness of Air/Wheezing Last Admin: 04/23/21 18:00 Dose: 3 ml Documented by: Amlodipine Besylate (Amlodipine 5 Mg Tablet) 5 mg PO DAILY [facility] Last Admin: 04/24/21 08:19 Dose: 5 mg Documented by: Apixaban (Apixaban 5 Mg Tablet) 5 mg PO BID [facility] Last Admin: 04/24/21 08:19 Dose: 5 mg Documented by: Aspirin (Aspirin Chew 81 Mg Tablet) 81 mg PO DAILY [facility] Last Admin: 04/24/21 08:18 Dose: 81 mg Documented by: Atorvastatin Calcium (Atorvastatin 40 Mg Tablet) 40 mg PO QPM [facility] Last Admin: 04/23/21 21:09 Dose: 40 mg Documented by: Bupropion HCl (Bupropion Xl 150 Mg Tablet) 300 mg PO DAILY [facility] Last Admin: 04/24/21 08:18 Dose: 300 mg Documented by: Carvedilol (Carvedilol 12.5 Mg Tablet) 12.5 mg PO BID [facility] Last Admin: 04/24/21 08:18 Dose: 12.5 mg Documented by: Gabapentin (Gabapentin 100 Mg Capsule) 100 mg PO TID [facility] Last Admin: 04/24/21 05:37 Dose: 100 mg Documented by: Guaifenesin (Guaifenesin 600 Mg Tablet) 600 mg PO DAILY [facility] Last Admin: 04/24/21 08:19 Dose: 600 mg Documented by: Hydralazine HCl (Hydralazine 25 Mg Tablet) 50 mg PO TID [facility] Last Admin: 04/24/21 05:37 Dose: 50 mg Documented by: Hydralazine HCl (Hydralazine Inj 20 Mg/Ml Vial) 10 mg IVP TID PRN PRN Reason: Hypertensive Emergency Vancomycin HCl 1 gm/Vancomycin HCl 500 mg/ Sodium Chloride 500 mls @ 250 mls/hr IV Q24H [facility] Last Infusion: 04/24/21 01:37 Dose: Infused Documented by: Ceftriaxone Sodium 1 gm/ (Sodium Chloride) 100 mls @ 200 mls/hr IV DAILY [facility] Last Admin: 04/24/21 08:19 Dose: 200 mls/hr Documented by: Insulin Aspart (Insulin Aspart 300 Unit/3 Ml Pen) 1 - 9 unit SUBQ 0800,1200,1700,2100 [facility]; Protocol Last Admin: 04/24/21 08:15 Dose: 1 unit Documented by: Insulin Aspart (Insulin Aspart 300 Unit/3 Ml Pen) 3 unit SUBQ TIDWM [facility]; Iain col Last Admin: 04/24/21 08:16 Dose: 3 unit Documented by: Isosorbide Mononitrate (Isosorbide Mononitrate Er 30 Mg Tablet) 30 mg PO DAILY [facility] Last Admin: 04/24/21 08:18 Dose: 30 mg Documented by: Levothyroxine Sodium (Levothyroxine 25 Mcg Tablet) 25 mcg PO QDAC [facility] Last Admin: 04/24/21 05:37 Dose: 25 mcg Documented by: Morphine Sulfate (Morphine 2 Mg/Ml Carpuject) 2 mg IVP Q4HR PRN PRN Reason: PAIN Last Admin: 04/24/21 08:20 Dose: 2 mg Documented by: Multivitamins/Minerals (Multivitamin W/Minerals Tablet) 1 tab PO DAILYWM [facility] Last Admin: 04/24/21 08:17 Dose: 1 tab Documented by: Nicotine (Nicotine 21 Mg Patch) 1 patch TOP DAILY [facility] Last Admin: 04/24/21 08:17 Dose: 1 patch Documented by: Ondansetron HCl (Ondansetron Odt 4 Mg Tablet) 4 mg TL Q4HR PRN PRN Reason: Nausea / Vomiting Last Admin: 04/23/21 08:52 Dose: 4 mg Documented by: Ondansetron HCl (Ondansetron 4 Mg/2 Ml Vial) 4 mg IVP Q6HR PRN PRN Reason: Nausea / Vomiting Oxycodone HCl (Oxycodone 5 Mg Tablet) 5 mg PO Q4HR PRN PRN Reason: PAIN Last Admin: 04/24/21 05:49 Dose: 5 mg Documented by: Saccharomyces Boulardii (Saccharomyces Boulardii 250 Mg Capsule) 250 mg PO BIDWM [facility] Last Admin: 04/24/21 08:18 Dose: 250 mg Documented by: Sodium Chloride (Sodium Chloride Flush 0.9% 10 Ml Syringe) 10 ml IVP PRN PRN PRN Reason: NEEDED PER PROVIDER ORDERS Last Admin: 04/24/21 01:36 Dose: 10 ml Documented by: Sodium Chloride (Sodium Chloride Flush 0.9% 10 Ml Syringe) 10 ml IVP 01 00,0900,1700 [facility] Last Admin: 04/24/21 04:03 Dose: 10 ml Documented by: Throat Lozenges (Benzocaine/Menthol Lozenge) 1 lozenge MM Q2HR PRN PRN Reason: Throat pain Last Admin: 04/23/21 20:05 Dose: 1 lozenge Documented by: Albuterol Sulfate [Proair Hfa Inhaler] 2 puffs PO Q4H PRN 04/22/21 Aspirin [Aspirin EC] 81 mg PO DAILY 04/22/21 Atorvastatin Calcium 40 mg PO QPM 04/22/21 Furosemide [Lasix] 40 mg PO DAILY 04/22/21 Gabapentin [Neurontin] 300 mg PO BID PRN 04/22/21 Glipizide [Glipizide ER] 2.5 mg PO DAILY 04/22/21 Hydralazine HCl 50 mg PO TID 04/22/21 Isosorbide Mononitrate ER [Imdur] 30 mg PO DAILY 04/22/21 Levothyroxine [Synthroid] 25 mcg PO DAILY 04/22/21 Metoprolol Tartrate [Lopressor] 25 mg PO BID 04/22/21 Potassium Chloride 20 meq PO DAILY 04/22/21 Rivaroxaban [Xarelto] 15 mg PO DAILY 04/22/21 Sertraline [Zoloft] 50 mg PO DAILY 04/22/21 Tiotropium [place] [Spiriva] 1 cap PO DAILY 04/22/21 amLODIPine [Norvasc] 5 mg PO DAILY 04/22/21 buPROPion HCL [Bupropion Xl] 300 mg PO DAILY 04/22/21 carvediloL [Coreg] 12.5 mg PO BID 04/22/21 lisinopriL [Zestril] 5 mg PO DAILY 04/22/21 predniSONE [Deltasone] 10 mg PO DAILY 04/22/21 traZODone [Desyrel] 100 mg PO QPM 04/22/21 Objective - Vital Signs/Intake & Output Reviewed Vital Signs: Yes Vital Signs: Vital Signs x48h Temp Pulse Resp BP BP Pulse Ox 04/24/21 05:49 84 151/64 H 04/24/21 04:10 37.2 C 81 20 128/61 94 04/23/21 23:50 37.1 C 89 20 169/71 H 95 Intake & Output: Intake & Output 04/21/21 04/22/21 04/23/21 04/24/21 23:59 23:59 23:59 23:59 Intake Total 740 2630 600 Output Total 325 9185 1475 Balance 348 -745 -714 - Objective General Appearance: positive: No acute distress, Alert, Other (bearded, pleasant obese white male sitting up in chair eating breakfast) Eyes Bilateral: positive: PERRL, EOMI ENT: positive: Pharynx nml, No signs of dehydration Neck: positive: No JVD. negative: Stiff neck Respiratory: positive: No respiratory distress. negative: Wheezes, Rales, Rhonchi Cardiovascular: positive: Regular rate & rhythm, No murmur, No gallop, Other (s itting w legs up in chair) Abdomen: positive: Non-tender, No organomegaly, Nml bowel sounds, No distention, Other (large protuberant panus) Skin: positive: Other (redness and heat of R leg has subsided over the pierce, distal calf but still there. There is a large pocket of hot, tender, tense induration over upper medial R calf. [place] sized loss of skin w drying eschar on numerous places on R leg. L leg wrinkled, slightly red with with resolving red. Growths on) Extremities: positive: Pedal edema Neurologic/Psychiatric: positive: Oriented x3, CN's nml (2-12), Motor nml - Lab Results Fish Bones: 04/24/21 04:45 04/24/21 04:45 Other Labs: Lab Results x24hrs 04/24/21 04/24/21 04/23/21 Range/Units 04:45 04:45 21:41 WBC 7.8 (4.8-10.8) x10^3/uL RBC 3.53 L (4.70-6.10) 10^6/uL Hgb 9.2 L (14.0-18.0) g/dL Hct 28.7 L (42.0-52.0) % MCV 81.3 (80.0-94.0) fL MCH 26.1 L (27.0-31.0) pg MCHC 32.1 (32.0-36.0) g/dL RDW 15.1 H (12.0-15.0) % Plt Count 190 (130-450) 10^3/uL MPV 10.9 (7.4-11.4) fL Neut # (Auto) 6.2 (1.5-6.6) 10^3/uL Lymph # (Auto) 0.6 L (1.5-3.5) 10^3/uL Morton # (Auto) 0.8 (0.0-1.0) 10^3/uL Eos # (Auto) 0.1 (0.0-0.7) 10^3/uL Baso # (Auto) 0.0 (0.0-0.1) 10^3/uL Absolute Nucleated RBC 0.00 x10^3/uL Nucleated RBC % 0.0 /100WBC Sodium 133 L (135-145) mmol/L Potassium 4.1 (3.5-5.0) mmol/L Chloride 100 L (101-111) mmol/L Carbon Dioxide 24 (21-32) mmol/L Anion Gap 9.0 (6-13) BUN 33 H (6-20) mg/dL Creatinine 1.8 H (0.6-1.2) mg/dL Estimated GFR (MDRD) 37 L (>89) Glucose 126 H (70-100) mg/dL POC Whole Bld Glucose (70 - 100) mg/dL Calcium 7.9 L (8.5-10.3) mg/dL C-Reactive Protein 16.8 H (0-1.0) mg/dL B-Natriuretic Peptide 650 H (5-100) pg/mL 04/23/21 04/23/21 04/23/21 Range/Units 20:39 16:32 11:23 WBC (4.8-10.8) x10^3/uL RBC (4.70-6.10) 10^6/uL Hgb (14.0-18.0) g/dL Hct (42.0-52.0) % MCV (80.0-94.0) fL MCH (27.0-31.0) pg MCHC (32.0-36.0) g/dL RDW (12.0-15.0) % Plt Count (130-450) 10^3/uL MPV (7.4-11.4) fL Neut # (Auto) (1.5-6.6) 10^3/uL Lymph # (Auto) (1.5-3.5) 10^3/uL Morton # (Auto) (0.0-1.0) 10^3/uL Eos # (Auto) (0.0-0.7) 10^3/uL Baso # (Auto) (0.0-0.1) 10^3/uL Absolute Nucleated RBC x10^3/uL Nucleated RBC % /100WBC Sodium (135-145) mmol/L Potassium (3.5-5.0) mmol/L Chloride (101-111) mmol/L Carbon Dioxide (21-32) mmol/L Anion Gap (6-13) BUN (6-20) mg/dL Creatinine (0.6-1.2) mg/dL Estimated GFR (MDRD) (>89) Glucose (70-100) mg/dL POC Whole Bld Glucose 238 H 162 H 219 H (70 - 100) mg/dL Calcium (8.5-10.3) mg/dL C-Reactive Protein (0-1.0) mg/dL B-Natriuretic Peptide (5-100) pg/mL 04/23/21 Range/Units 07:47 WBC (4.8-10.8) x10^3/uL RBC (4.70-6.10) 10^6/uL Hgb (14.0-18.0) g/dL Hct (42.0-52.0) % MCV (80.0-94.0) fL MCH (27.0-31.0) pg MCHC (32.0-36.0) g/dL RDW (12.0-15.0) % Plt Count (130-450) 10^3/uL MPV (7.4-11.4) fL Neut # (Auto) (1.5-6.6) 10^3/uL Lymph # (Auto) (1.5-3.5) 10^3/uL [place] # (Auto) (0.0-1.0) 10^3/uL Eos # (Auto) (0.0-0.7) 10^3/uL Baso # (Auto) (0.0-0.1) 10^3/uL Absolute Nucleated RBC x10^3/uL Nucleated RBC % /100WBC Sodium (135-145) mmol/L Potassium (3.5-5.0) mmol/L Chloride (101-111) mmol/L Carbon Dioxide (21-32) mmol/L Anion Gap (6-13) BUN (6-20) mg/dL Creatinine (0.6-1.2) mg/dL Estimated GFR (MDRD) (>89) Glucose (70-100) mg/dL POC Whole Bld Glucose 177 H (70 - 100) mg/dL Calcium (8.5-10.3) mg/dL C-Reactive Protein (0-1.0) mg/dL B-Natriuretic Peptide (5-100) pg/mL ABX Reporting Has patient been on IV antibiotics over the past 48 hours?: Yes Sepsis Event Note (H) - Evaluation Current Stage of Sepsis: Sepsis Possible source of Sepsis: positive: Skin/soft tissue - Sepsis Criteria Sepsis Criteria: Recorded Temperature greater than 38.3C or Less than 36C, WBC count greater than 12,000 or less than 4000 Assessment/Plan - Problem List (1) Cellulitis of both lower extremities Impression: He presented with fever, leukocytosis, pulse >90 and met sepsis criteria. .Sepsis has resolved since 04/23. CT of the chest, abdomen, and pelvis revealed no acute abnormalities. His urinalysis did not suggest infection. Given his cellulitis appears to be purulent, Is on vancomycin. He received ceftriaxone and azithromycin initially at the outside hospital as there was concern for pneumonia as he presented with dyspnea but our imaging did not suggest pneumonia. We will therefore keep him on vancomycin alone. White cell count started at 12.3>>9.5>>7.8 today. .C-reactive protein 18.3 on admission>>20.6>>16.8 today. He has not had a fever while here. Pulse was 91 when he hit the emergency room and he has been consistently in the 80s. . Plan: I have had our [employer] call outside hospital to get blood culture results to see if they are positive. We don't have those records yet this morning. If those are positive we will need to repeat blood cultures here. Trend his CBC, C-reactive protein. Continue vancomycin, day 3 Check ultrasound to make sure he doesn't have soft tissue abcess. (2) Nausea and vomiting, Resolved Conclusion/Plan: Suspect this is related to the sepsis and underlying infection. He did undergo CT of the abdomen and pelvis at the outside hospital which showed no acute abnormalities. There was diverticulosis without diverticulitis. He also did have several mildly prominent mid small bowel segments but there was no evidence of obstruction. We will continue him on a diet and use Zofran as needed. (3) CKD (chronic kidney disease) Conclusion/Plan: He has CKD likely secondary to his type 2 diabetes mellitus. We will monitor his renal function while he is on IV antibiotics. Vancomycin will be adjusted. He was 1.8 at the outside facility with his creatinine. For 2 days he was 2.0 and today he is 1.8 Qualifiers: Chronic kidney disease stage: stage 3 (moderate) (4) Atrial fibrillation Conclusion/Plan: His rate on presentation to our emergency room was in the low 100s. We have resumed his carvedilol and anticoagulation. Currently pulse is in the 80s. No change in management for now (5) Coronary artery disease Conclusion/Plan: He had stenting in July of this year at [facility] in [place]. We will continue anticoagulation with Eliquis per pharmacy policy although he is on Xarelto at home. We will continue aspirin daily as well as Lipitor. Troponin was within normal limits at outside hospital and EKG did not suggest ischemia. (6) Diastolic CHF Conclusion/Plan: BNP at outside hospital was over [address] did not reveal any pulmonary edema. He still did have a right pleural effusion. Given he was septic, we held off on diuresis. We also held off on IV fluids given he is hypertensive without evidence of hypoperfusion. He will need to be diuresed at some point during his hospitalization. In view of his creatinine being 2.0, will held off on diuresis since admit. He is 1.8 today. Will still hold off for now. Qualifiers: Heart failure chronicity: chronic Qualified Code(s): I50.32 - Chronic diastolic (congestive) heart failure (7) COPD (chronic obstructive pulmonary disease) Conclusion/Plan: Stable and not in exacerbation. We will continue with albuterol as needed. (8) Hypertension Conclusion/Plan: He has been hypertensive at the outside hospital with systolics in the 150s. His admitting hospitalist stated that the he was going to resume his home carvedilol, lisinopril, hydralazine. We held off on amlodipine at this time given his chronic lower extremity edema as this may be a contributing factor. He is consistently in the 150s systolic. Norvasc was resumed in spite of disc ussion about not resuming it. He is on Coreg but no hydralazine or lisinopril. Pills initially started but stopped. The thought process was the creatinine of 2.0. He is on hydralazine as needed. (9) Type 2 diabetes mellitus Conclusion/Plan: He is on glipizide at home. His glucose was less than 200 at the outside hospital. We will start him on sliding scale and consider adding Lantus if necessary. Carb controlled diet.Glucose 162 with dinner yesterday, at at bedtime was 238. Before breakfast this morning he is 167. I added 3 units of short acting insulin before meals starting at last night's dinner. We'll continue to monitor today to see if I need to further adjust.
[2021-04-24] MEDS: INSULIN ASPART 300 UNIT/3 ML PEN SUBQ SCH ×7 (08:15→21:33)
[2021-04-24] MEDS: MULTIVITAMIN W/MINERALS TABLET PO SCH (08:17)
[2021-04-24] MEDS: NICOTINE 21 MG PATCH TOP SCH (08:17)
[2021-04-24] MEDS: buPROPion XL 150 MG TABLET PO SCH (08:18)
[2021-04-24] MEDS: SACCHAROMYCES BOULARDII 250 MG CAPSULE PO SCH ×2 (08:18→17:28)
[2021-04-24] MEDS: ASPIRIN CHEW 81 MG TABLET PO SCH (08:18)
[2021-04-24] MEDS: carvediloL 12.5 MG TABLET PO SCH ×2 (08:18→21:27)
[2021-04-24] MEDS: ISOSORBIDE MONONITRATE ER 30 MG TABLET PO SCH (08:18)
[2021-04-24] MEDS: guaiFENesin 600 MG TABLET PO SCH (08:19)
[2021-04-24] MEDS: cefTRIAXone 1 GM in SODIUM CHLORIDE 0.9% MINIBAG 100 ML IV SCH (08:19)
[2021-04-24] MEDS: amLODIPine 5 MG TABLET PO SCH (08:19)
[2021-04-24] MEDS: APIXABAN 5 MG TABLET PO SCH ×2 (08:19→21:28)
--- NOTE | 2021-04-24 18:56 | Ultrasound Report ---
PROCEDURE: Ext Limited Non Vascular INDICATIONS: right upper calf fluctuance TECHNIQUE: Real-time scanning was performed of the right upper calf area of interest, with image doc umentation. COMPARISON: None. FINDINGS: Skin thickening and subcutaneous edema in the area of interest. No discrete fluid collecti on. IMPRESSION: Findings of cellulitis without abscess. Reviewed by: Oliverio Wilcox MD on 04/24/2021 6:55 PM PST Approved by: Oliverio Wilcox MD on 04/24/2021 6:55 PM PST Station ID: [id number]
[2021-04-24] MEDS: IPRATROPIUM/ALBUTEROL 3 ML NEB INH PRN (21:11)
[2021-04-24] MEDS: ATORVASTATIN 40 MG TABLET PO SCH (21:27)
[2021-04-24] MEDS: VANCOMYCIN INJ 1 GM, VANCOMYCIN INJ 500 MG in SODIUM CHLORIDE 0.9% 500 ML IV SCH (22:54)
[2021-04-24 23:12] LABS: VANCOMYCIN,TROUGH 17.7 ug/mL (10.0-20.0)
[2021-04-25] MEDS: SODIUM CHLORIDE FLUSH 0.9% 10 ML SYRINGE IVP SCH ×3 (00:08→16:20)
[2021-04-25] MEDS: MORPHINE 2 MG/ML CARPUJECT IVP PRN (00:08)
[2021-04-25] MEDS ORDERED: traZODone 50 MG TABLET PO STA (00:42)
[2021-04-25] MEDS ORDERED: LORazepam 1 MG TABLET PO STA (01:06)
[2021-04-25] MEDS ORDERED: MECLIZINE 12.5 MG TABLET PO STA (01:06)
[2021-04-25] MEDS: hydrALAZINE 25 MG TABLET PO SCH ×3 (05:39→21:18)
[2021-04-25] MEDS: GABAPENTIN 100 MG CAPSULE PO SCH ×3 (05:39→21:18)
[2021-04-25] MEDS: LEVOTHYROXINE 25 MCG TABLET PO SCH (05:39)
[2021-04-25 05:57] LABS: BASOPHILS % (AUTO) 0.3 %; EOSINOPHILS # (AUTO) 0.1 10^3/uL (0.0-0.7); EOSINOPHILS % (AUTO) 1.5 %; HCT - HEMATOCRIT 28.9 % (42.0-52.0); HGB - HEMOGLOBIN 9.3 g/dL (14.0-18.0); LYMPHOCYTES # (AUTO) 0.7 10^3/uL (1.5-3.5); LYMPHOCYTES % (AUTO) 9.8 %; MEAN CORPUSCULAR HEMOGLOBIN 25.8 pg (27.0-31.0); MEAN CORPUSCULAR HGB CONC 32.2 g/dL (32.0-36.0); MEAN CORPUSCULAR VOLUME 80.1 fL (80.0-94.0); MEAN PLATELET VOLUME 10.7 fL (7.4-11.4); MONOCYTES # (AUTO) 0.7 10^3/uL (0.0-1.0); MONOCYTES % (AUTO) 8.9 %; NEUTROPHILS # (AUTO) 5.7 10^3/uL (1.5-6.6); NEUTROPHILS % (AUTO) 78.4 %; PLT - PLATELET COUNT 197 10^3/uL (130-450); RED BLOOD COUNT 3.61 10^6/uL (4.70-6.10); RED CELL DISTRIBUTION WIDTH 14.9 % (12.0-15.0); WHITE BLOOD COUNT 7.3 x10^3/uL (4.8-10.8)
[2021-04-25 06:14] LABS: CALCIUM 7.9 mg/dL (8.5-10.3); CREATININE 1.9 mg/dL (0.6-1.2); CRP - C-REACTIVE PROTEIN 13.4 mg/dL (0-1.0)
[2021-04-25] MEDS: ALBUTEROL NEB 2.5 MG/3 ML INH PRN (07:42)
[2021-04-25] MEDS: INSULIN ASPART 300 UNIT/3 ML PEN SUBQ SCH ×7 (07:53→21:19)
[2021-04-25] MEDS: SACCHAROMYCES BOULARDII 250 MG CAPSULE PO SCH ×2 (08:09→16:18)
[2021-04-25] MEDS: MULTIVITAMIN W/MINERALS TABLET PO SCH (08:09)
--- NOTE | 2021-04-25 08:12 | PROVIDER PROGRESS NOTE ---
Assessment/Plan - Problem List (1) Cellulitis of both lower extremities Assessment/Plan: Improving. Continue Is an IV. Wound and blood cultures no growth to date. (2) Nausea and vomiting Assessment/Plan: Of the abdomen/pelvis done at an outside hospital showed no acute abnormalities. There was diverticulosis without diverticulitis. Continue Zofran as needed (3) CKD (chronic kidney disease) Qualifiers: Chronic kidney disease stage: stage 3 (moderate) Assessment/Plan: Creatinine 1.9 BUN 34 estimated GFR 35. We will continue to monitor renal function while he is on vancomycin IV. (5) Coronary artery disease Assessment/Plan: History of stent done in July 2020 at [facility] in [place]. Continue Eliquis, aspirin and Lipitor (6) Diastolic CHF Qualifiers: Heart failure chronicity: chronic Qualified Code(s): I50.32 - Chronic diastolic (congestive) heart failure (7) COPD (chronic obstructive pulmonary disease) Assessment/Plan: Exacerbation. Albuterol as needed. (8) Hypertension Assessment/Plan: On carvedilol, lisinopril and hydralazine. Amlodipine held due to chronic lower extremity edema. (9) Type 2 diabetes mellitus Assessment/Plan: Accu-Cheks before every meal and at bedtime. Sliding scale insulin. Carb controlled diet. - Current Meds Current Meds: Current Medications Generic Name Dose Route Start Last Admin Trade Name Freq PRN Reason Stop Dose Admin Acetaminophen 650 mg 04/22/21 02:00 04/22/21 23:54 Acetaminophen 325 Mg Tablet PO 650 mg Q4HR PRN Administration Pain or Fever > 38C (100.4F) Albuterol 2.5 mg 04/22/21 01:39 04/25/21 07:42 Albuterol Neb 2.5 Mg/3 Ml INH 2.5 mg RTQ4H PRN Administration Wheezing Albuterol/Ipratropium 3 ml 04/22/21 11:04 04/24/21 21:11 Ipratropium/Albuterol 3 Ml Neb INH 3 ml RTQID PRN Administration Shortness of Air/Wheezing Amlodipine Besylate 5 mg 04/22/21 13:28 04/24/21 08:19 Amlodipine 5 Mg Tablet PO 5 mg DAILY LAYA Administration Apixaban 5 mg 04/22/21 09:00 04/24/21 21:28 Apixaban 5 Mg Tablet PO 5 mg BID LAYA Administration Aspirin 81 mg 04/22/21 09:00 04/24/21 08:18 Aspirin Chew 81 Mg Tablet PO 81 mg DAILY LAYA Administration Atorvastatin Calcium 40 mg 04/22/21 21:00 04/24/21 21:27 Atorvastatin 40 Mg Tablet PO 40 mg QPM LAYA Administration Bupropion HCl 300 mg 04/23/21 09:00 04/24/21 08:18 Bupropion Xl 150 Mg Tablet PO 300 mg DAILY LAYA Administration Carvedilol 12.5 mg 04/22/21 09:00 04/24/21 21:27 Carvedilol 12.5 Mg Tablet PO 12.5 mg BID LAYA Administration Gabapentin 100 mg 04/22/21 14:00 04/25/21 05:39 Gabapentin 100 Mg Capsule PO 100 mg TID LAYA Administration Guaifenesin 600 mg 04/23/21 09:00 04/24/21 08:19 Guaifenesin 600 Mg Tablet PO 600 mg DAILY LAYA Administration Hydralazine HCl 50 mg 04/22/21 06:00 04/25/21 05:39 Hydralazine 25 Mg Tablet PO 50 mg TID LAYA Administration Vancomycin HCl 1 gm/ 500 mls @ 250 mls/hr 04/22/21 23:00 04/25/21 01:38 Vancomycin HCl 500 mg/ Sodium IV Infused Chloride Q24H LAYA Infusion Ceftriaxone Sodium 1 gm/ 100 mls @ 200 mls/hr 04/23/21 09:00 04/24/21 09:00 Sodium Chloride IV Infused DAILY LAYA Infusion Insulin Aspart 1 - 9 unit 04/22/21 08:00 04/25/21 07:54 Insulin Aspart 300 Unit/3 Ml Pen SUBQ 1 unit 0800,1200,1700,2100 [facility] Administration Protocol Insulin Aspart 3 unit 04/23/21 17:00 04/25/21 07:53 Insulin Aspart 300 Unit/3 Ml Pen SUBQ 3 unit TIDWM [facility] Administration Protocol Isosorbide Mononitrate 30 mg 04/22/21 13:28 04/24/21 08:18 Isosorbide Mononitrate Er 30 Mg Tablet PO 30 mg DAILY LAYA Administration Levothyroxine Sodium 25 mcg 04/23/21 07:00 04/25/21 05:39 Levothyroxine 25 Mcg Tablet PO 25 mcg QDAC LAYA Administration Morphine Sulfate 2 mg 04/22/21 02:00 04/25/21 00:08 Morphine 2 Mg/Ml Carpuject IVP 2 mg Q4HR PRN Administration PAIN Multivitamins/Minerals 1 tab 04/22/21 11:00 04/25/21 08:09 Multivitamin W/Minerals Tablet PO 1 tab DAILYWM LAYA Administration Nicotine 1 patch 04/22/21 09:00 04/24/21 08:17 Nicotine 21 Mg Patch TOP 1 patch DAILY LAYA Administration Ondansetron HCl 4 mg 04/22/21 01:59 04/23/21 08:52 Ondansetron Odt 4 Mg Tablet TL 4 mg Q4HR PRN Administration Nausea / Vomiting Oxycodone HCl 5 mg 04/22/21 02:00 04/24/21 19:54 Oxycodone 5 Mg Tablet PO 5 mg Q4HR PRN Administration PAIN Saccharomyces Boulardii 250 mg 04/22/21 17:00 04/25/21 08:09 Saccharomyces Boulardii 250 Mg Capsule PO 250 mg BIDWM LAYA Administration Sodium Chloride 10 ml 04/21/21 23:22 04/24/21 01:36 Sodium Chloride Flush 0.9% 10 Ml Syringe IVP 10 ml PRN PRN Administration NEEDED PER PROVIDER ORDERS Sodium Chloride 10 ml 04/22/21 01:00 04/25/21 00:08 Sodium Chloride Flush 0.9% 10 Ml Syringe IVP 10 ml 0100,0900,1700 LAYA Administration Throat Lozenges 1 lozenge 04/23/21 09:14 04/23/21 20:05 Benzocaine/Menthol Lozenge MM 1 lozenge Q2HR PRN Administration Throat pain - Lab Result Fish Bone Diagrams: 04/28/21 06:17 04/28/21 06:17 Subjective - Subjective Patient Reports: Other (Resting comfortably in bed at time of exam. Reported sleeping on and off throughout the night. It appears he was having some hallucinations. He talked of seeing a dog in his room. Lower extremity redness significantly improved. He denied any other complaints.) Objective Vital Signs: Vital Signs - 24 hr 04/24/21 04/24/21 04/24/21 12:33 15:54 20:00 Temperature 36.9 C 36.5 C 36.4 C L Heart Rate Heart Rate [ 85 75 79 Brachial] Respiratory 18 24 20 Rate Blood Pressure [Left Brachial artery] Blood Pressure 157/77 H 133/81 H 143/89 H [Right Brachial artery] O2 Saturation 97 95 95 04/24/21 04/25/21 04/25/21 21:30 00:13 05:00 Temperature 36.8 C 36.7 C Heart Rate Heart Rate [ 87 84 Brachial] Respiratory 20 20 Rate Blood Pressure 168/91 H [Left Brachial artery] Blood Pressure 168/91 H 158/87 H 156/74 H [Right Brachial artery] O2 Saturation 93 95 04/25/21 04/25/21 07:27 07:35 Temperature 36.4 C L Heart Rate 81 Heart Rate [ 88 Brachial] Respiratory 22 22 Rate Blood Pressure [Left Brachial artery] Blood Pressure 147/105 H [Right Brachial artery] O2 Saturation 94 Oxygen O2 Source Room air I&O (Last 24 Hrs): Intake and Output Totals x24h 04/23/21 04/24/21 04/25/21 23:59 23:59 23:59 Intake Total 2630 3600 1200 Output Total 3525 3725 1525 Balance -895 -125 -325 General: Alert, Oriented x3 HEENT: PERRLA, EOMI Neck: Supple, No JVD Neuro: Alert, Oriented Times 3 Cardiovascular: Regular rate, Normal S1, Normal S2, No murmurs Respiratory: Chest non-tender, Other (Mild dyspnea. Mild crackles in lung bases bilaterally.) Abdomen: Normal bowel sounds, Soft, Other (Obese abdomen) Extremities: Other (+1 lower extremity edema) Comments/Notes: wounds on lower extremities bilaterally - Results Results: Laboratory Results WBC 7.3 x10^3/uL (4.8-10.8) 04/25/21 05:14 RBC 3.61 10^6/uL (4.70-6.10) L 04/25/21 05:14 Hgb 9.3 g/dL (14.0-18.0) L 04/25/21 05:14 Hct 28.9 % (42.0-52.0) L 04/25/21 05:14 MCV 80.1 fL (80.0-94.0) 04/25/21 05:14 MCH 25.8 pg (27.0-31.0) L 04/25/21 05:14 MCHC 32.2 g/dL (32.0-36.0) 04/25/21 05:14 RDW 14.9 % (12.0-15.0) 04/25/21 05:14 Plt Count 197 10^3/uL (130-450) 04/25/21 05:14 MPV 10.7 fL (7.4-11.4) 04/25/21 05:14 Neut # (Auto) 5.7 10^3/uL (1.5-6.6) 04/25/21 05:14 Lymph # (Auto) 0.7 10^3/uL (1.5-3.5) L 04/25/21 05:14 [place] # (Auto) 0.7 10^3/uL (0.0-1.0) 04/25/21 05:14 Eos # (Auto) 0.1 10^3/uL (0.0-0.7) 04/25/21 05:14 Baso # (Auto) 0.0 10^3/uL (0.0-0.1) 04/25/21 05:14 Absolute Nucleated RBC 0.00 x10^3/uL 04/25/21 05:14 Nucleated RBC % 0.0 /100WBC 04/25/21 05:14 Sodium 130 mmol/L (135-145) L 04/25/21 05:14 Potassium 4.0 mmol/L (3.5-5.0) 04/25/21 05:14 Chloride 97 mmol/L (101-111) L 04/25/21 05:14 Carbon Dioxide 23 mmol/L (21-32) 04/25/21 05:14 Anion Gap 10.0 (6-13) 04/25/21 05:14 BUN 34 mg/dL (6-20) H 04/25/21 05:14 Creatinine 1.9 mg/dL (0.6-1.2) H 04/25/21 05:14 Estimated GFR (MDRD) 35 (>89) L 04/25/21 05:14 Glucose 223 mg/dL (70-100) H 04/25/21 05:14 POC Whole Bld Glucose 169 mg/dL (70 - 100) H 04/25/21 07:25 Estimat Average Glucose 166 mg/dL (70-100) H 04/22/21 08:23 Hemoglobin A1c % 7.4 % (4.27-6.07) H 04/22/21 08:23 Calcium 7.9 mg/dL (8.5-10.3) L 04/25/21 05:14 C-Reactive Protein 13.4 mg/dL (0-1.0) H 04/25/21 05:14 B-Natriuretic Peptide 650 pg/mL (5-100) H 04/23/21 21:41 TSH 1.63 uIU/mL (0.34-5.60) 04/22/21 06:06 Nasal Adenovirus (PCR) NOT DETECTED 04/22/21 09:10 Nasal B. parapertussis DNA (PCR) NOT DETECTED 04/22/21 09:10 Nasal Coronavir 229E PCR NOT DETECTED 04/22/21 09:10 Nasal Coronavir HKU1 PCR NOT DETECTED 04/22/21 09:10 Nasal Coronavir NL63 PCR NOT DETECTED 04/22/21 09:10 Nasal Coronavir OC43 PCR NOT DETECTED 04/22/21 09:10 Nasal Enterovir/Rhinovir PCR NOT DETECTED 04/22/21 09:10 Nasal Influenza B PCR NOT DETECTED 04/22/21 09:10 Nasal Influenza A PCR NOT DETECTED 04/22/21 09:10 Nasal Parainfluen 1 PCR NOT DETECTED 04/22/21 09:10 Nasal Parainfluen 2 PCR NOT DETECTED 04/22/21 09:10 Nasal Parainfluen 3 PCR NOT DETECTED 04/22/21 09:10 Nasal Parainfluen 4 PCR NOT DETECTED 04/22/21 09:10 Nasal RSV (PCR) NOT DETECTED 04/22/21 09:10 Nasal B.pertussis DNA PCR NOT DETECTED 04/22/21 09:10 Nasal C.pneumoniae (PCR) NOT DETECTED 04/22/21 09:10 Juan Human Metapneumo PCR NOT DETECTED 04/22/21 09:10 Nasal M.pneumoniae (PCR) NOT DETECTED 04/22/21 09:10 Nasal SARS-CoV-2 (PCR) NOT DETECTED 04/22/21 09:10 Last Dose Date 04/24/21 04/24/21 22:55 Last Dose Time 2254 04/24/21 22:55 Vancomycin Trough 17.7 ug/mL (10.0-20.0) 04/24/21 22:55 Urine Opiates Screen POSITIVE (NEGATIVE) H 04/22/21 13:15 Ur Oxycodone Screen POSITIVE (NEGATIVE) H 04/22/21 13:15 Urine Methadone Screen NEGATIVE (NEGATIVE) 04/22/21 13:15 Ur Propoxyphene Screen NEGATIVE (NEGATIVE) 04/22/21 13:15 Ur Barbiturates Screen NEGATIVE (NEGATIVE) 04/22/21 13:15 Ur Tricyclics Screen NEGATIVE (NEGATIVE) 04/22/21 13:15 Ur Phencyclidine Scrn NEGATIVE (NEGATIVE) 04/22/21 13:15 Ur Amphetamine Screen NEGATIVE (NEGATIVE) 04/22/21 13:15 U Methamphetamines Scrn NEGATIVE (NEGATIVE) 04/22/21 13:15 U Benzodiazepines Scrn NEGATIVE (NEGATIVE) 04/22/21 13:15 Urine Cocaine Screen NEGATIVE (NEGATIVE) 04/22/21 13:15 U Cannabinoids Screen NEGATIVE (NEGATIVE) 04/22/21 13:15 Sepsis Event Note (H) - Evaluation Current Stage of Sepsis: Sepsis Possible source of Sepsis: positive: Skin/soft tissue - Sepsis Criteria Sepsis Criteria: Recorded Temperature greater than 38.3C or Less than 36C, WBC count greater than 12,000 or less than 4000 ABX Reporting Has patient been on IV antibiotics over the past 48 hours?: Yes
[2021-04-25] MEDS: ASPIRIN CHEW 81 MG TABLET PO SCH (10:38)
[2021-04-25] MEDS: SENNA 8.6 MG TABLET PO SCH (10:38)
[2021-04-25] MEDS: guaiFENesin 600 MG TABLET PO SCH (10:40)
[2021-04-25] MEDS: polyethylene glycoL 3350 17 GM PACKET PO SCH (10:40)
[2021-04-25] MEDS: DOCUSATE SODIUM 250 MG CAPSULE PO SCH (10:41)
[2021-04-25] MEDS: carvediloL 12.5 MG TABLET PO SCH ×2 (10:41→21:18)
[2021-04-25] MEDS: buPROPion XL 150 MG TABLET PO SCH (10:41)
[2021-04-25] MEDS: amLODIPine 5 MG TABLET PO SCH (10:41)
[2021-04-25] MEDS: APIXABAN 5 MG TABLET PO SCH ×2 (10:41→21:18)
[2021-04-25] MEDS: FUROSEMIDE 40 MG TABLET PO SCH (10:41)
[2021-04-25] MEDS: ISOSORBIDE MONONITRATE ER 30 MG TABLET PO SCH (10:41)
[2021-04-25] MEDS: cefTRIAXone 1 GM in SODIUM CHLORIDE 0.9% MINIBAG 100 ML IV SCH (10:42)
[2021-04-25] MEDS: NICOTINE 21 MG PATCH TOP SCH (10:42)
[2021-04-25] MEDS: SODIUM CHLORIDE FLUSH 0.9% 10 ML SYRINGE IVP PRN (11:51)
[2021-04-25] MEDS: oxyCODONE 5 MG TABLET PO PRN (16:19)
[2021-04-25] MEDS: ACETAMINOPHEN 325 MG TABLET PO PRN (16:19)
[2021-04-25] MEDS: FORMOTEROL FUMARATE NEB 20 MCG/2 ML INH SCH (21:04)
[2021-04-25] MEDS: BUDESONIDE 0.5 MG/2 ML NEB INH SCH (21:04)
[2021-04-25] MEDS: ATORVASTATIN 40 MG TABLET PO SCH (21:18)
[2021-04-25] MEDS: VANCOMYCIN INJ 1 GM, VANCOMYCIN INJ 500 MG in SODIUM CHLORIDE 0.9% 500 ML IV SCH (22:37)
[2021-04-25] MEDS ORDERED: LORazepam 0.5 MG TABLET PO STA (22:39)
[2021-04-26] MEDS: SODIUM CHLORIDE FLUSH 0.9% 10 ML SYRINGE IVP SCH ×3 (00:03→16:10)
[2021-04-26] MEDS: MORPHINE 2 MG/ML CARPUJECT IVP PRN ×4 (00:03→23:42)
[2021-04-26] MEDS: ACETAMINOPHEN 325 MG TABLET PO PRN ×3 (00:03→16:09)
[2021-04-26] MEDS: LEVOTHYROXINE 25 MCG TABLET PO SCH (05:47)
[2021-04-26] MEDS: hydrALAZINE 25 MG TABLET PO SCH ×3 (05:47→20:51)
[2021-04-26] MEDS: GABAPENTIN 100 MG CAPSULE PO SCH ×3 (05:47→20:50)
[2021-04-26] MEDS: SODIUM CHLORIDE FLUSH 0.9% 10 ML SYRINGE IVP PRN (05:48)
[2021-04-26 06:09] LABS: BASOPHILS % (AUTO) 0.5 %; EOSINOPHILS # (AUTO) 0.2 10^3/uL (0.0-0.7); EOSINOPHILS % (AUTO) 2.4 %; HCT - HEMATOCRIT 28.3 % (42.0-52.0); HGB - HEMOGLOBIN 9.4 g/dL (14.0-18.0); LYMPHOCYTES # (AUTO) 0.6 10^3/uL (1.5-3.5); LYMPHOCYTES % (AUTO) 10.3 %; MEAN CORPUSCULAR HEMOGLOBIN 26.6 pg (27.0-31.0); MEAN CORPUSCULAR HGB CONC 33.2 g/dL (32.0-36.0); MEAN CORPUSCULAR VOLUME 80.2 fL (80.0-94.0); MEAN PLATELET VOLUME 10.3 fL (7.4-11.4); MONOCYTES # (AUTO) 0.7 10^3/uL (0.0-1.0); MONOCYTES % (AUTO) 10.9 %; NEUTROPHILS # (AUTO) 4.6 10^3/uL (1.5-6.6); NEUTROPHILS % (AUTO) 74.3 %; PLT - PLATELET COUNT 210 10^3/uL (130-450); RED BLOOD COUNT 3.53 10^6/uL (4.70-6.10); RED CELL DISTRIBUTION WIDTH 15.2 % (12.0-15.0); WHITE BLOOD COUNT 6.2 x10^3/uL (4.8-10.8)
[2021-04-26 06:31] LABS: CALCIUM 7.9 mg/dL (8.5-10.3); CREATININE 1.6 mg/dL (0.6-1.2); CRP - C-REACTIVE PROTEIN 10.3 mg/dL (0-1.0); POTASSIUM 3.9 mmol/L (3.5-5.0)
[2021-04-26] MEDS: IPRATROPIUM/ALBUTEROL 3 ML NEB INH PRN ×2 (07:35→23:16)
[2021-04-26] MEDS: FORMOTEROL FUMARATE NEB 20 MCG/2 ML INH SCH ×2 (07:40→19:21)
[2021-04-26] MEDS: BUDESONIDE 0.5 MG/2 ML NEB INH SCH ×2 (07:40→19:21)
[2021-04-26] MEDS: buPROPion XL 150 MG TABLET PO SCH (08:09)
[2021-04-26] MEDS: amLODIPine 5 MG TABLET PO SCH (08:09)
[2021-04-26] MEDS: SACCHAROMYCES BOULARDII 250 MG CAPSULE PO SCH ×2 (08:09→16:09)
[2021-04-26] MEDS: FUROSEMIDE 40 MG TABLET PO SCH (08:09)
[2021-04-26] MEDS: MULTIVITAMIN W/MINERALS TABLET PO SCH (08:09)
[2021-04-26] MEDS: guaiFENesin 600 MG TABLET PO SCH (08:09)
[2021-04-26] MEDS: ASPIRIN CHEW 81 MG TABLET PO SCH (08:09)
[2021-04-26] MEDS: APIXABAN 5 MG TABLET PO SCH ×2 (08:09→20:50)
[2021-04-26] MEDS: carvediloL 12.5 MG TABLET PO SCH ×2 (08:09→20:50)
[2021-04-26] MEDS: ISOSORBIDE MONONITRATE ER 30 MG TABLET PO SCH (08:09)
[2021-04-26] MEDS: cefTRIAXone 1 GM in SODIUM CHLORIDE 0.9% MINIBAG 100 ML IV SCH (08:10)
[2021-04-26] MEDS: SENNA 8.6 MG TABLET PO SCH (08:10)
[2021-04-26] MEDS: polyethylene glycoL 3350 17 GM PACKET PO SCH (08:10)
[2021-04-26] MEDS: DOCUSATE SODIUM 250 MG CAPSULE PO SCH (08:10)
[2021-04-26 08:16] LABS: ABSOLUTE RETICS # AUTO 0.032 10^6/uL (0.020-0.110); RED BLOOD COUNT 3.56 10^6/uL (4.70-6.10); RETICULOCYTE COUNT % (AUTO) 0.9 % (0.5-2.3)
[2021-04-26] MEDS: NICOTINE 21 MG PATCH TOP SCH (08:18)
[2021-04-26] MEDS: oxyCODONE 5 MG TABLET PO PRN ×3 (08:22→20:50)
[2021-04-26] MEDS: INSULIN ASPART 300 UNIT/3 ML PEN SUBQ SCH ×7 (08:23→20:52)
[2021-04-26 08:47] LABS: % IRON SATURATION 8 % (20-50); FERRITIN 222.7 ng/mL (23.9-336.2); IRON 19 ug/dL (45-182); TOTAL IRON BINDING CAPACITY 227 ug/dL (250-450); TRANSFERRIN 162 mg/dL (180-329)
--- NOTE | 2021-04-26 11:31 | Ultrasound Report ---
PROCEDURE: Ext Limited Non Vascular INDICATIONS: RT LEG TENDERNESS, EVAL FOR FLUID COLLECTION/ABSCESS TECHNIQUE: Real-time scanning was performed of the right calf, with image documentation. COMPARISON: None. FINDINGS: Thickened and edematous subcutaneous soft tissues without fluid collection. IMPRESSION: Thickened and edematous subcutaneous soft tissues without fluid collection or abscess. Reviewed by: Oliverio Wilcox MD on 04/26/2021 11:29 AM PST Approved by: Oliverio Wilcox MD on 04/26/2021 11:29 AM PST Station ID: [id number]
[2021-04-26] MEDS: BACITRACIN ZINC OINT 1 PACKET TOP SCH ×2 (11:58→20:51)
[2021-04-26] MEDS: CEFEPIME 1 GM in SODIUM CHLORIDE 0.9% MINIBAG 100 ML IV SCH ×2 (12:02→20:51)
--- NOTE | 2021-04-26 14:37 | PROVIDER PROGRESS NOTE ---
Assessment/Plan - Problem List (1) Cellulitis of both lower extremities Assessment/Plan: 04/26, Patient's left lower extremity cellulitis has improved, But right lower extremity still present tenderness, warmth and swelling, also right lower extremity has opened wound. order US for right lower extremity show no fluid collection or abscess but thickness and edema. pt has hx of Diabetes, switch to Cefepime to control possible Pseudomonas infection, Continue vancomycin, add wound culture. (2) Nausea and vomiting, Resolved resolved (3) CKD (chronic kidney disease) improved. creatinine is 1.6, from admission at 2.0 (4) Atrial fibrillation control, continue his carvedilol and anticoagulation. (5) Coronary artery disease Conclusion/Plan: stable, He had stenting in July of this year at [facility] in [place]. We will continue anticoagulation with Eliquis per pharmacy policy although he is on Xarelto at home. We will continue aspirin daily as well as Lipitor. Troponin was within normal limits at outside hospital and EKG did not suggest ischemia. (6) Diastolic CHF Conclusion/Plan: ECHO study reveal moderate abnormal right heart pressure. BNP at outside hospital was over [address] did not reveal any pulmonary edema. pt is already on PO lasix, will continue, and continue Coreg. (7) COPD (chronic obstructive pulmonary disease) Conclusion/Plan: Stable and not in exacerbation. We will continue with albuterol as needed. (8) Hypertension Conclusion/Plan: stable, continue home meds, vital monitor (9) Type 2 diabetes mellitus A1C is 7.4, pt has slight increased glucose, increase slide scale, Continue glucose check, continue hypoglycemic protocol (10)weakness pt present weakness, and off balance, will consult With PT and OT - Current Meds Current Meds: Current Medications Generic Name Dose Route Start Last Admin Trade Name Freq PRN Reason Stop Dose Admin Acetaminophen 650 mg 04/22/21 02:00 04/26/21 05:47 Acetaminophen 325 Mg Tablet PO 650 mg Q4HR PRN Administration Pain or Fever > 38C (100.4F) Albuterol 2.5 mg 04/22/21 01:39 04/25/21 07:42 Albuterol Neb 2.5 Mg/3 Ml INH 2.5 mg RTQ4H PRN Administration Wheezing Albuterol/Ipratropium 3 ml 04/22/21 11:04 04/26/21 07:35 Ipratropium/Albuterol 3 Ml Neb INH 3 ml RTQID PRN Administration Shortness of Air/Wheezing Amlodipine Besylate 5 mg 04/22/21 13:28 04/26/21 08:09 Amlodipine 5 Mg Tablet PO 5 mg DAILY LAYA Administration Apixaban 5 mg 04/22/21 09:00 04/26/21 08:09 Apixaban 5 Mg Tablet PO 5 mg BID LAYA Administration Aspirin 81 mg 04/22/21 09:00 04/26/21 08:09 Aspirin Chew 81 Mg Tablet PO 81 mg DAILY LAYA Administration Atorvastatin Calcium 40 mg 04/22/21 21:00 04/25/21 21:18 Atorvastatin 40 Mg Tablet PO 40 mg QPM LAYA Administration Bacitracin 1 packet 04/26/21 10:00 04/26/21 11:58 Bacitracin Zinc Oint 1 Packet TOP 1 packet BID LYAA Administration Budesonide 0.5 mg 04/25/21 19:00 04/26/21 07:40 Budesonide 0.5 Mg/2 Ml Neb INH 0.5 mg RTBID LAYA Administration Bupropion HCl 300 mg 04/23/21 09:00 04/26/21 08:09 Bupropion Xl 150 Mg Tablet PO 300 mg DAILY LAYA Administration Carvedilol 12.5 mg 04/22/21 09:00 04/26/21 08:09 Carvedilol 12.5 Mg Tablet PO 12.5 mg BID LAYA Administration Docusate Sodium 250 - 500 mg 04/25/21 09:00 04/26/21 08:10 Docusate Sodium 250 Mg Capsule PO 250 mg DAILY LAYA Administration Formoterol Fumarate 20 mcg 04/25/21 19:00 04/26/21 07:40 Formoterol Fumarate Neb 20 Mcg/2 Ml INH 20 mcg RTBID LAYA Administration Furosemide 40 mg 04/25/21 09:00 04/26/21 08:09 Furosemide 40 Mg Tablet PO 40 mg DAILY LAYA Administration Gabapentin 100 mg 04/22/21 14:00 04/26/21 14:02 Gabapentin 100 Mg Capsule PO 100 mg TID LAYA Administration Guaifenesin 600 mg 04/23/21 09:00 04/26/21 08:09 Guaifenesin 600 Mg Tablet PO 600 mg DAILY LAYA Administration Hydralazine HCl 50 mg 04/22/21 06:00 04/26/21 14:02 Hydralazine 25 Mg Tablet PO 50 mg TID LAYA Administration Vancomycin HCl 1 gm/ 500 mls @ 250 mls/hr 04/22/21 23:00 04/26/21 00:46 Vancomycin HCl 500 mg/ Sodium IV Infused Chloride Q24H LAYA Infusion Cefepime HCl 1 gm/ Sodium 100 mls @ 200 mls/hr 04/26/21 11:00 04/26/21 13:43 Chloride IV Infused BID LAYA Infusion Insulin Aspart 1 - 9 unit 04/22/21 08:00 04/26/21 11:58 Insulin Aspart 300 Unit/3 Ml Pen SUBQ 1 unit 0800,1200,1700,2100 LAYA Administration Protocol Insulin Aspart 3 unit 04/23/21 17:00 04/26/21 11:58 Insulin Aspart 300 Unit/3 Ml Pen SUBQ 3 unit TIDWM LAYA Administration Protocol Isosorbide Mononitrate 30 mg 04/22/21 13:28 04/26/21 08:09 Isosorbide Mononitrate Er 30 Mg Tablet PO 30 mg DAILY LAYA Administration Levothyroxine Sodium 25 mcg 04/23/21 07:00 04/26/21 05:47 Levothyroxine 25 Mcg Tablet PO 25 mcg QDAC LAYA Administration Morphine Sulfate 2 mg 04/22/21 02:00 04/26/21 12:43 Morphine 2 Mg/Ml Carpuject IVP 2 mg Q4HR PRN Administration PAIN Multivitamins/Minerals 1 tab 04/22/21 11:00 04/26/21 08:09 Multivitamin W/Minerals Tablet PO 1 tab DAILYWM LAYA Administration Nicotine 1 patch 04/22/21 09:00 04/26/21 08:18 Nicotine 21 Mg Patch TOP 1 patch DAILY LAYA Administration Ondansetron HCl 4 mg 04/22/21 01:59 04/23/21 08:52 Ondansetron Odt 4 Mg Tablet TL 4 mg Q4HR PRN Administration Nausea / Vomiting Oxycodone HCl 5 mg 04/22/21 02:00 04/26/21 08:22 Oxycodone 5 Mg Tablet PO 5 mg Q4HR PRN Administration PAIN Polyethylene Glycol 17 gm 04/25/21 09:00 04/26/21 08:10 Polyethylene Glycol 3350 17 Gm Packet PO 17 gm DAILY LAYA Administration Saccharomyces Boulardii 250 mg 04/22/21 17:00 04/26/21 08:09 Saccharomyces Rukhsanadii 250 Mg Capsule PO 250 mg BIDWM LAYA Administration Senna 8.6 - 17.2 mg 04/25/21 09:00 04/26/21 08:10 Senna 8.6 Mg Tablet PO 8.6 mg DAILY LAYA Administration Sodium Chloride 10 ml 04/21/21 23:22 04/26/21 05:48 Sodium Chloride Flush 0.9% 10 Ml Syringe IVP 10 ml PRN PRN Administration NEEDED PER PROVIDER ORDERS Sodium Chloride 10 ml 04/22/21 01:00 04/26/21 08:18 Sodium Chloride Flush 0.9% 10 Ml Syringe IVP 10 ml 0100,0900,1700 LAYA Administration Throat Lozenges 1 lozenge 04/23/21 09:14 04/23/21 20:05 Benzocaine/Menthol Lozenge MM 1 lozenge Q2HR PRN Administration Throat pain - Lab Result Fish Bone Diagrams: 04/26/21 05:48 04/26/21 05:48 - Additional Planning My Orders: My Active Orders 04/26/21 Evaluate and Treat OT [OT] Routine Evaluate and Treat PT [PT] Routine 04/26/21 09:06 Miscellaenous Nursing Order [RC] DAILY 04/26/21 10:00 Bacitracin Zinc Oint [Bacitracin] 1 packet TOP BID 04/26/21 11:00 Cefepime [Maxipime] 1 gm Sodium Chloride 0.9% Minibag [Normal Saline 0.9% Minibag] 100 ml IV BID 04/26/21 11:15 CUL,WOUND (AEROBIC) [RM] Urgent CUL,WOUND (AEROBIC) [RM] Urgent 04/26/21 15:00 Ferrous Gluconate [Fergon] 324 mg PO DAILYWM 04/27/21 05:00 CRP - C-REACTIVE PROTEIN [CHEM] DAILYLAB 04/28/21 05:00 CRP - C-REACTIVE PROTEIN [CHEM] DAILYLAB 04/29/21 05:00 CRP - C-REACTIVE PROTEIN [CHEM] DAILYLAB 04/30/21 05:00 CRP - C-REACTIVE PROTEIN [CHEM] DAILYLAB 05/01/21 05:00 CRP - C-REACTIVE PROTEIN [CHEM] DAILYLAB Subjective - Subjective Patient Reports: Resting Comfortably Objective Vital Signs: Vital Signs - 24 hr 04/25/21 04/25/21 04/25/21 15:42 20:42 21:04 Temperature 36.7 C 36.3 C L Heart Rate 82 Heart Rate [ 80 69 Brachial] Heart Rate [ Sitting] Heart Rate [ Supine] Respiratory 20 16 20 Rate Blood Pressure [Left Brachial artery] Blood Pressure 148/82 H 152/70 H [Right Brachial artery] Blood Pressure [Sitting] Blood Pressure [Supine] O2 Saturation 96 96 04/25/21 04/26/21 04/26/21 23:38 05:26 05:43 Temperature 36.5 C 36.5 C Heart Rate Heart Rate [ 65 80 Brachial] Heart Rate [ Sitting] Heart Rate [ Supine] Respiratory 16 20 Rate Blood Pressure [Left Brachial artery] Blood Pressure 159/83 H 181/80 H 161/92 H [Right Brachial artery] Blood Pressure [Sitting] Blood Pressure [Supine] O2 Saturation 98 95 04/26/21 04/26/21 04/26/21 07:22 07:36 07:42 Temperature 36.4 C L Heart Rate 79 65 Heart Rate [ 78 Brachial] Heart Rate [ Sitting] Heart Rate [ Supine] Respiratory 18 20 20 Rate Blood Pressure 152/78 H [Left Brachial artery] Blood Pressure [Right Brachial artery] Blood Pressure [Sitting] Blood Pressure [Supine] O2 Saturation 97 04/26/21 04/26/21 04/26/21 09:50 11:31 11:35 Temperature Heart Rate 79 Heart Rate [ Brachial] Heart Rate [ 86 86 Sitting] Heart Rate [ 77 77 Supine] Respiratory 20 Rate Blood Pressure [Left Brachial artery] Blood Pressure [Right Brachial artery] Blood Pressure 161/81 H 161/81 H [Sitting] Blood Pressure 170/80 H 170/80 H [Supine] O2 Saturation 98 04/26/21 13:23 Temperature 36.4 C L Heart Rate Heart Rate [ 70 Brachial] Heart Rate [ Sitting] Heart Rate [ Supine] Respiratory 18 Rate Blood Pressure 133/75 H [Left Brachial artery] Blood Pressure [Right Brachial artery] Blood Pressure [Sitting] Blood Pressure [Supine] O2 Saturation 98 Oxygen O2 Source Room air I&O (Last 24 Hrs): Intake and Output Totals x24h 04/24/21 04/25/21 04/26/21 23:59 23:59 23:59 Intake Total 3600 3626 1800.000 Output Total 3725 5025 2225 Balance -125 -1399 -425.000 General: Alert, Oriented x3, Cooperative, No acute distress HEENT: Atraumatic Neck: Supple Lymphatic: no adenopathy Neuro: Alert, Non Focal, Oriented Times 3 Cardiovascular: Regular rate, Normal S1, Normal S2 Respiratory: Chest non-tender, No respiratory distress Extremities: Normal pulses - Results Results: Laboratory Results WBC 6.2 x10^3/uL (4.8-10.8) 04/26/21 05:48 RBC 3.53 10^6/uL (4.70-6.10) L 04/26/21 05:48 RBC 3.56 10^6/uL (4.70-6.10) L 04/26/21 05:48 Hgb 9.4 g/dL (14.0-18.0) L 04/26/21 05:48 Hct 28.3 % (42.0-52.0) L 04/26/21 05:48 MCV 80.2 fL (80.0-94.0) 04/26/21 05:48 MCH 26.6 pg (27.0-31.0) L 04/26/21 05:48 MCHC 33.2 g/dL (32.0-36.0) 04/26/21 05:48 RDW 15.2 % (12.0-15.0) H 04/26/21 05:48 Plt Count 210 10^3/uL (130-450) 04/26/21 05:48 MPV 10.3 fL (7.4-11.4) 04/26/21 05:48 Reticulocyte % (Auto) 0.90 % (0.5-2.3) 04/26/21 05:48 Neut # (Auto) 4.6 10^3/uL (1.5-6.6) 04/26/21 05:48 Lymph # (Auto) 0.6 10^3/uL (1.5-3.5) L 04/26/21 05:48 [place] # (Auto) 0.7 10^3/uL (0.0-1.0) 04/26/21 05:48 Eos # (Auto) 0.2 10^3/uL (0.0-0.7) 04/26/21 05:48 Baso # (Auto) 0.0 10^3/uL (0.0-0.1) 04/26/21 05:48 Absolute Nucleated RBC 0.00 x10^3/uL 04/26/21 05:48 Nucleated RBC % 0.0 /100WBC 04/26/21 05:48 Absolute Retic 0.032 10^6/uL (0.020-0.110) 04/26/21 05:48 Sodium 133 mmol/L (135-145) L 04/26/21 05:48 Potassium 3.9 mmol/L (3.5-5.0) 04/26/21 05:48 Chloride 101 mmol/L (101-111) 04/26/21 05:48 Carbon Dioxide 22 mmol/L (21-32) 04/26/21 05:48 Anion Gap 10.0 (6-13) 04/26/21 05:48 BUN 30 mg/dL (6-20) H 04/26/21 05:48 Creatinine 1.6 mg/dL (0.6-1.2) H 04/26/21 05:48 Estimated GFR (MDRD) 43 (>89) L 04/26/21 05:48 Glucose 149 mg/dL (70-100) H 04/26/21 05:48 POC Whole Bld Glucose 179 mg/dL (70 - 100) H 04/26/21 11:10 Estimat Average Glucose 166 mg/dL (70-100) H 04/22/21 08:23 Hemoglobin A1c % 7.4 % (4.27-6.07) H 04/22/21 08:23 Calcium 7.9 mg/dL (8.5-10.3) L 04/26/21 05:48 Iron 19 ug/dL (45-182) L 04/26/21 05:48 TIBC 227 ug/dL (250-450) L 04/26/21 05:48 % Saturation 8 % (20-50) L 04/26/21 05:48 Transferrin 162 mg/dL (180-329) L 04/26/21 05:48 Ferritin 222.7 ng/mL (23.9-336.2) 04/26/21 05:48 Lactate Dehydrogenase 187 IU/L (91-225) 04/26/21 05:48 C-Reactive Protein 10.3 mg/dL (0-1.0) H 04/26/21 05:48 B-Natriuretic Peptide 650 pg/mL (5-100) H 04/23/21 21:41 Vitamin B12 283 pg/mL (180-914) 04/26/21 05:48 TSH 1.63 uIU/mL (0.34-5.60) 04/22/21 06:06 Nasal Adenovirus (PCR) NOT DETECTED 04/22/21 09:10 Nasal B. parapertussis DNA (PCR) NOT DETECTED 04/22/21 09:10 Nasal Coronavir 229E PCR NOT DETECTED 04/22/21 09:10 Nasal Coronavir HKU1 PCR NOT DETECTED 04/22/21 09:10 Nasal Coronavir NL63 PCR NOT DETECTED 04/22/21 09:10 Nasal Coronavir OC43 PCR NOT DETECTED 04/22/21 09:10 Nasal Enterovir/Rhinovir PCR NOT DETECTED 04/22/21 09:10 Nasal Influenza B PCR NOT DETECTED 04/22/21 09:10 Nasal Influenza A PCR NOT DETECTED 04/22/21 09:10 Nasal Parainfluen 1 PCR NOT DETECTED 04/22/21 09:10 Nasal Parainfluen 2 PCR NOT DETECTED 04/22/21 09:10 Nasal Parainfluen 3 PCR NOT DETECTED 04/22/21 09:10 Nasal Parainfluen 4 PCR NOT DETECTED 04/22/21 09:10 Nasal RSV (PCR) NOT DETECTED 04/22/21 09:10 Nasal B.pertussis DNA PCR NOT DETECTED 04/22/21 09:10 Nasal C.pneumoniae (PCR) NOT DETECTED 04/22/21 09:10 Juan Human Metapneumo PCR NOT DETECTED 04/22/21 09:10 Nasal M.pneumoniae (PCR) NOT DETECTED 04/22/21 09:10 Nasal SARS-CoV-2 (PCR) NOT DETECTED 04/22/21 09:10 Last Dose Date 04/24/21 04/24/21 22:55 Last Dose Time 2254 04/24/21 22:55 Vancomycin Trough 17.7 ug/mL (10.0-20.0) 04/24/21 22:55 Urine Opiates Screen POSITIVE (NEGATIVE) H 04/22/21 13:15 Ur Oxycodone Screen POSITIVE (NEGATIVE) H 04/22/21 13:15 Urine Methadone Screen NEGATIVE (NEGATIVE) 04/22/21 13:15 Ur Propoxyphene Screen NEGATIVE (NEGATIVE) 04/22/21 13:15 Ur Barbiturates Screen NEGATIVE (NEGATIVE) 04/22/21 13:15 Ur Tricyclics Screen NEGATIVE (NEGATIVE) 04/22/21 13:15 Ur Phencyclidine Scrn NEGATIVE (NEGATIVE) 04/22/21 13:15 Ur Amphetamine Screen NEGATIVE (NEGATIVE) 04/22/21 13:15 U Methamphetamines Scrn NEGATIVE (NEGATIVE) 04/22/21 13:15 U Benzodiazepines Scrn NEGATIVE (NEGATIVE) 04/22/21 13:15 Urine Cocaine Screen NEGATIVE (NEGATIVE) 04/22/21 13:15 U Cannabinoids Screen NEGATIVE (NEGATIVE) 04/22/21 13:15 Sepsis Event Note (H) - Evaluation Current Stage of Sepsis: Sepsis Possible source of Sepsis: positive: Skin/soft tissue - Sepsis Criteria Sepsis Criteria: Recorded Temperature greater than 38.3C or Less than 36C, WBC count greater than 12,000 or less than 4000 ABX Reporting Has patient been on IV antibiotics over the past 48 hours?: Yes Current Medications - Current Medications Current Medications: Active Medications Acetaminophen (Acetaminophen 325 Mg Tablet) 650 mg PO Q4HR PRN PRN Reason: Pain or Fever > 38C (100.4F) Last Admin: 04/26/21 05:47 Dose: 650 mg Documented by: Albuterol (Albuterol Neb 2.5 Mg/3 Ml) 2.5 mg INH RTQ4H PRN PRN Reason: Wheezing Last Admin: 04/25/21 07:42 Dose: 2.5 mg Documented by: Albuterol/Ipratropium (Ipratropium/Albuterol 3 Ml Neb) 3 ml INH RTQID PRN PRN Reason: Shortness of Air/Wheezing Last Admin: 04/26/21 07:35 Dose: 3 ml Documented by: Amlodipine Besylate (Amlodipine 5 Mg Tablet) 5 mg PO DAILY LAYA Last Admin: 04/26/21 08:09 Dose: 5 mg Documented by: Apixaban (Apixaban 5 Mg Tablet) 5 mg PO BID LAYA Last Admin: 04/26/21 08:09 Dose: 5 mg Documented by: Aspirin (Aspirin Chew 81 Mg Tablet) 81 mg PO DAILY [facility] Last Admin: 04/26/21 08:09 Dose: 81 mg Documented by: Atorvastatin Calcium (Atorvastatin 40 Mg Tablet) 40 mg PO QPM LAYA Last Admin: 04/25/21 21:18 Dose: 40 mg Documented by: Bacitracin (Bacitracin Zinc Oint 1 Packet) 1 packet TOP BID [facility] Last Admin: 04/26/21 11:58 Dose: 1 packet Documented by: Budesonide (Budesonide 0.5 Mg/2 Ml Neb) 0.5 mg INH RTBID [facility] Last Admin: 04/26/21 07:40 Dose: 0.5 mg Documented by: Bupropion HCl (Bupropion Xl 150 Mg Tablet) 300 mg PO DAILY [facility] Last Admin: 04/26/21 08:09 Dose: 300 mg Documented by: Carvedilol (Carvedilol 12.5 Mg Tablet) 12.5 mg PO BID [facility] Last Admin: 04/26/21 08:09 Dose: 12.5 mg Documented by: Docusate Sodium (Docusate Sodium 250 Mg Capsule) 250 - 500 mg PO DAILY [facility] Last Admin: 04/26/21 08:10 Dose: 250 mg Documented by: Ferrous Gluconate (Ferrous Gluconate 324 Mg Tablet) 324 mg PO DAILYWM [facility] Formoterol Fumarate (Formoterol Fumarate Neb 20 Mcg/2 Ml) 20 mcg INH RTBID [facility] Last Admin: 04/26/21 07:40 Dose: 20 mcg Documented by: Furosemide (Furosemide 40 Mg Tablet) 40 mg PO DAILY [facility] Last Admin: 04/26/21 08:09 Dose: 40 mg Documented by: Gabapentin (Gabapentin 100 Mg Capsule) 100 mg PO TID [facility] Last Admin: 04/26/21 14:02 Dose: 100 mg Documented by: Guaifenesin (Guaifenesin 600 Mg Tablet) 600 mg PO DAILY [facility] Last Admin: 04/26/21 08:09 Dose: 600 mg Documented by: Hydralazine HCl (Hydralazine 25 Mg Tablet) 50 mg PO TID [facility] Last Admin: 04/26/21 14:02 Dose: 50 mg Documented by: Hydralazine HCl (Hydralazine Inj 20 Mg/Ml Vial) 10 mg IVP TID PRN PRN Reason: Hypertensive Emergency Vancomycin HCl 1 gm/Vancomycin HCl 500 mg/ Sodium Chloride 500 mls @ 250 mls/hr IV Q24H [facility] Last Infusion: 04/26/21 00:46 Dose: Infused Documented by: Cefepime HCl 1 gm/ Sodium (Chloride) 100 mls @ 200 mls/hr IV BID [facility] Last Infusion: 04/26/21 13:43 Dose: Infused Documented by: Insulin Aspart (Insulin Aspart 300 Unit/3 Ml Pen) 3 unit SUBQ TIDWM [facility]; Protocol Last Admin: 04/26/21 11:58 Dose: 3 unit Documented by: Insulin Aspart (Insulin Aspart 300 Unit/3 Ml Pen) 2 - 10 unit SUBQ 0800,1200,1 700,2100 [facility]; Protocol Isosorbide Mononitrate (Isosorbide Mononitrate Er 30 Mg Tablet) 30 mg PO DAILY [facility] Last Admin: 04/26/21 08:09 Dose: 30 mg Documented by: Levothyroxine Sodium (Levothyroxine 25 Mcg Tablet) 25 mcg PO QDAC [facility] Last Admin: 04/26/21 05:47 Dose: 25 mcg Documented by: Morphine Sulfate (Morphine 2 Mg/Ml Carpuject) 2 mg IVP Q4HR PRN PRN Reason: PAIN Last Admin: 04/26/21 12:43 Dose: 2 mg Documented by: Multivitamins/Minerals (Multivitamin W/Minerals Tablet) 1 tab PO DAILYWM [facility] Last Admin: 04/26/21 08:09 Dose: 1 tab Documented by: Nicotine (Nicotine 21 Mg Patch) 1 patch TOP DAILY [facility] Last Admin: 04/26/21 08:18 Dose: 1 patch Documented by: Ondansetron HCl (Ondansetron Odt 4 Mg Tablet) 4 mg TL Q4HR PRN PRN Reason: Nausea / Vomiting Last Admin: 04/23/21 08:52 Dose: 4 mg Documented by: Ondansetron HCl (Ondansetron 4 Mg/2 Ml Vial) 4 mg IVP Q6HR PRN PRN Reason: Nausea / Vomiting Oxycodone HCl (Oxycodone 5 Mg Tablet) 5 mg PO Q4HR PRN PRN Reason: PAIN Last Admin: 04/26/21 08:22 Dose: 5 mg Documented by: Polyethylene Glycol (Polyethylene Glycol 3350 17 Gm Packet) 17 gm PO DAILY [facility] Last Admin: 04/26/21 08:10 Dose: 17 gm Documented by: Saccharomyces Boulardii (Saccharomyces Boulardii 250 Mg Capsule) 250 mg PO BIDWM [facility] Last Admin: 04/26/21 08:09 Dose: 250 mg Documented by: Senna (Senna 8.6 Mg Tablet) 8.6 - 17.2 mg PO DAILY [facility] Last Admin: 04/26/21 08:10 Dose: 8.6 mg Documented by: Sodium Chloride (Sodium Chloride Flush 0.9% 10 Ml Syringe) 10 ml IVP PRN PRN PRN Reason: NEEDED PER PROVIDER ORDERS Last Admin: 04/26/21 05:48 Dose: 10 ml Documented by: Sodium Chloride (Sodium Chloride Flush 0.9% 10 Ml Syringe) 10 ml IVP 0100,0900,1700 [facility] Last Admin: 04/26/21 08:18 Dose: 10 ml Documented by: Throat Lozenges (Benzocaine/Menthol Lozenge) 1 lozenge MM Q2HR PRN PRN Reason: Throat pain Last Admin: 04/23/21 20:05 Dose: 1 lozenge Documented by: Albuterol Sulfate [Proair Hfa Inhaler] 2 puffs PO Q4H PRN 04/22/21 Aspirin [Aspirin EC] 81 mg PO DAILY 04/22/21 Atorvastatin Calcium 40 mg PO QPM 04/22/21 Furosemide [Lasix] 40 mg PO DAILY 04/22/21 Gabapentin [Neurontin] 300 mg PO BID PRN 04/22/21 Glipizide [Glipizide ER] 2.5 mg PO DAILY 04/22/21 Hydralazine HCl 50 mg PO TID 04/22/21 Isosorbide Mononitrate ER [Imdur] 30 mg PO DAILY 04/22/21 Levothyroxine [Synthroid] 25 mcg PO DAILY 04/22/21 Metoprolol Tartrate [Lopressor] 25 mg PO BID 04/22/21 Potassium Chloride 20 meq PO DAILY 04/22/21 Rivaroxaban [Xarelto] 15 mg PO DAILY 04/22/21 Sertraline [Zoloft] 50 mg PO DAILY 04/22/21 Tiotropium [place] [Spiriva] 1 cap PO DAILY 04/22/21 amLODIPine [Norvasc] 5 mg PO DAILY 04/22/21 buPROPion HCL [Bupropion Xl] 300 mg PO DAILY 04/22/21 carvediloL [Coreg] 12.5 mg PO BID 04/22/21 lisinopriL [Zestril] 5 mg PO DAILY 04/22/21 predniSONE [Deltasone] 10 mg PO DAILY 04/22/21 traZODone [Desyrel] 100 mg PO QPM 04/22/21
[2021-04-26] MEDS: FERROUS GLUCONATE 324 MG TABLET PO SCH (15:03)
[2021-04-26] MEDS: ALBUTEROL NEB 2.5 MG/3 ML INH PRN (19:21)
[2021-04-26] MEDS: ATORVASTATIN 40 MG TABLET PO SCH (20:50)
[2021-04-26 22:37] LABS: VANCOMYCIN,TROUGH 21.1 ug/mL (10.0-20.0)
[2021-04-26] MEDS: VANCOMYCIN INJ 1 GM, VANCOMYCIN INJ 500 MG in SODIUM CHLORIDE 0.9% 500 ML IV SCH (22:39)
[2021-04-27] MEDS ORDERED: methylPREDNISolone SUCCINATE 40 MG/ML VIAL IVP STA (00:03)
[2021-04-27] MEDS ORDERED: LEVALBUTEROL 1.25 MG/3 ML NEB INH PRN (00:04)
[2021-04-27] MEDS: traZODone 50 MG TABLET PO SCH ×2 (00:52→20:54)
--- NOTE | 2021-04-27 01:06 | XRAY Report ---
PROCEDURE: Chest 1 View X-Ray INDICATIONS: SOB TECHNIQUE: One view of the chest was acquired. COMPARISON: 04/23/2021 FINDINGS: Surgical changes and devices: Wire less ICD in place.. Lungs and pleura: Moderate sized right lung base opacity including alveolar infiltrate or atelectasis and effusion, stable compared to the prior study. No pneumothorax. There is a trace left pleural eff usion and diffuse thickening of the interstitium throughout the left lung. Mediastinum: Mediastinal contours appear normal. Heart size is enlarged. Bones and chest wall: No suspicious bony lesions. Overlying soft tissues appear unremarkable. IMPRESSION: 1. No significant change to right mid and lower lung opacity and effusion. 2. Diffuse interstitial thickening and development of trace left pleural effusion. This may be second den to volume overload, CHF, or infection. Reviewed by: Miya Restrepo MD on 04/27/2021 1:04 AM PST Approved by: Miya Restrepo MD on 04/27/2021 1:04 AM PST Station ID: [id number]
[2021-04-27] MEDS: SODIUM CHLORIDE FLUSH 0.9% 10 ML SYRINGE IVP SCH ×4 (01:25→23:13)
[2021-04-27] MEDS: hydrALAZINE 25 MG TABLET PO SCH ×3 (05:39→20:54)
[2021-04-27] MEDS: GABAPENTIN 100 MG CAPSULE PO SCH ×3 (05:40→20:53)
[2021-04-27] MEDS: LEVOTHYROXINE 25 MCG TABLET PO SCH (05:41)
[2021-04-27] MEDS: SODIUM CHLORIDE FLUSH 0.9% 10 ML SYRINGE IVP PRN (05:42)
[2021-04-27] MEDS ORDERED: FUROSEMIDE 40 MG/4 ML VIAL IVP SCH ×2 (06:00→09:00)
[2021-04-27 07:35] LABS: CALCIUM 8.2 mg/dL (8.5-10.3); CREATININE 1.6 mg/dL (0.6-1.2); CRP - C-REACTIVE PROTEIN 9.5 mg/dL (0-1.0); POTASSIUM 4.5 mmol/L (3.5-5.0)
[2021-04-27 07:36] LABS: BASOPHILS % (AUTO) 0.1 %; EOSINOPHILS % (AUTO) 0.1 %; HCT - HEMATOCRIT 32.5 % (42.0-52.0); HGB - HEMOGLOBIN 10.6 g/dL (14.0-18.0); LYMPHOCYTES # (AUTO) 0.4 10^3/uL (1.5-3.5); LYMPHOCYTES % (AUTO) 4.3 %; MEAN CORPUSCULAR HGB CONC 32.6 g/dL (32.0-36.0); MEAN CORPUSCULAR VOLUME 79.9 fL (80.0-94.0); MEAN PLATELET VOLUME 10.4 fL (7.4-11.4); MONOCYTES # (AUTO) 0.1 10^3/uL (0.0-1.0); MONOCYTES % (AUTO) 1.6 %; NEUTROPHILS # (AUTO) 7.7 10^3/uL (1.5-6.6); NEUTROPHILS % (AUTO) 92.1 %; PLT - PLATELET COUNT 244 10^3/uL (130-450); RED BLOOD COUNT 4.07 10^6/uL (4.70-6.10); RED CELL DISTRIBUTION WIDTH 15.1 % (12.0-15.0); WHITE BLOOD COUNT 8.4 x10^3/uL (4.8-10.8)
[2021-04-27] MEDS: IPRATROPIUM/ALBUTEROL 3 ML NEB INH PRN ×2 (07:44→19:44)
[2021-04-27] MEDS: BUDESONIDE 0.5 MG/2 ML NEB INH SCH ×4 (07:44→19:49)
[2021-04-27] MEDS: FORMOTEROL FUMARATE NEB 20 MCG/2 ML INH SCH ×2 (07:44→19:44)
[2021-04-27] MEDS ORDERED: GABAPENTIN 300 MG CAPSULE PO PRN (08:13)
[2021-04-27] MEDS: SENNA 8.6 MG TABLET PO SCH (08:15)
[2021-04-27] MEDS: polyethylene glycoL 3350 17 GM PACKET PO SCH (08:16)
[2021-04-27] MEDS: predniSONE 10 MG TABLET PO SCH (08:16)
[2021-04-27] MEDS: FERROUS GLUCONATE 324 MG TABLET PO SCH (08:16)
[2021-04-27] MEDS: guaiFENesin 600 MG TABLET PO SCH (08:16)
[2021-04-27] MEDS: DOCUSATE SODIUM 250 MG CAPSULE PO SCH (08:16)
[2021-04-27] MEDS: ASPIRIN CHEW 81 MG TABLET PO SCH (08:16)
[2021-04-27] MEDS: MULTIVITAMIN W/MINERALS TABLET PO SCH (08:16)
[2021-04-27] MEDS: amLODIPine 5 MG TABLET PO SCH (08:16)
[2021-04-27] MEDS: ISOSORBIDE MONONITRATE ER 30 MG TABLET PO SCH (08:16)
[2021-04-27] MEDS: buPROPion XL 150 MG TABLET PO SCH (08:16)
[2021-04-27] MEDS: APIXABAN 5 MG TABLET PO SCH ×2 (08:16→20:54)
[2021-04-27] MEDS: SACCHAROMYCES BOULARDII 250 MG CAPSULE PO SCH ×2 (08:16→16:43)
[2021-04-27] MEDS: BACITRACIN ZINC OINT 1 PACKET TOP SCH ×2 (08:17→20:54)
[2021-04-27] MEDS: oxyCODONE 5 MG TABLET PO PRN ×3 (08:18→22:36)
[2021-04-27] MEDS: ACETAMINOPHEN 325 MG TABLET PO PRN ×2 (08:18→22:36)
[2021-04-27] MEDS: METOPROLOL SUCCINATE 25 MG TABLET PO SCH (08:18)
[2021-04-27] MEDS: NICOTINE 21 MG PATCH TOP SCH (08:19)
[2021-04-27] MEDS: CEFEPIME 1 GM in SODIUM CHLORIDE 0.9% MINIBAG 100 ML IV SCH ×2 (08:24→20:53)
[2021-04-27] MEDS: INSULIN ASPART 300 UNIT/3 ML PEN SUBQ SCH ×7 (08:30→20:53)
[2021-04-27] MEDS: SERTRALINE 50 MG TABLET PO SCH (08:43)
[2021-04-27] MEDS ORDERED: FUROSEMIDE 40 MG/4 ML VIAL IVP ONE (09:00)
[2021-04-27] MEDS ORDERED: INSULIN ASPART 300 UNIT/3 ML PEN SUBQ ONE (13:03)
--- NOTE | 2021-04-27 14:46 | PROVIDER PROGRESS NOTE ---
Assessment/Plan - Problem List (1) Cellulitis of both lower extremities Assessment/Plan: 04/27 clinic significant improved at pt's right lower extremity infection. swelling, erythema, tenderness and warmth are reduced. left lower extremity infection is stable and improved. CRP continue reduced, WBC is at normal arrange. continue IVF antibiotics and probiotics, dressing change daily 04/26, Patient's left lower extremity cellulitis has improved, But right lower extremity still present tenderness, warmth and swelling, also right lower extremity has opened wound. order US for right lower extremity show no fluid collection or abscess but thickness and edema. pt has hx of Diabetes, switch to Cefepime to control possible Pseudomonas infection, Continue vancomycin, add wound culture. (2) Nausea and vomiting, Resolved resolved (3) CKD (chronic kidney disease) improved. creatinine is 1.6, from admission at 2.0 (4) Atrial fibrillation control, continue his metoprolol and anticoagulation. (5) Coronary artery disease Conclusion/Plan: stable, He had stenting in July of this year at [facility] in [place]. We will continue anticoagulation with Eliquis per pharmacy policy although he is on Xarelto at home. We will continue aspirin daily as well as Lipitor. Troponin was within normal limits at outside hospital and EKG did not suggest ischemia. (6) Diastolic CHF Conclusion/Plan: ECHO study reveal moderate abnormal right heart pressure. BNP at outside hospital was over [address] did not reveal any pulmonary edema. pt is already on PO lasix, will continue, and continue Coreg. (7) COPD (chronic obstructive pulmonary disease) Conclusion/Plan: Stable and not in exacerbation. We will continue with albuterol as needed. (8) Hypertension Conclusion/Plan: stable, continue home meds, vital monitor (9) Type 2 diabetes mellitus A1C is 7.4, pt has slight increased glucose, increase slide scale, Continue glucose check, continue hypoglycemic protocol (10) weakness pt present weakness, and off balance, will consult With PT and OT (11)hyperglycemia pt was given IV once solu-metrol by another provider, which cause hyperglycemia, add once Novolog, increase slide scale, continue glucose check, hypoglycemia protocol (12)depression pt has hx of depression, resume home Zoloft - Current Meds Current Meds: Current Medications Generic Name Dose Route Start Last Admin Trade Name Freq PRN Reason Stop Dose Admin Acetaminophen 650 mg 04/22/21 02:00 04/27/21 08:18 Acetaminophen 325 Mg Tablet PO 650 mg Q4HR PRN Administration Pain or Fever > 38C (100.4F) Albuterol 2.5 mg 04/22/21 01:39 04/26/21 19:21 Albuterol Neb 2.5 Mg/3 Ml INH 2.5 mg RTQ4H PRN Administration Wheezing Albuterol/Ipratropium 3 ml 04/22/21 11:04 04/27/21 07:44 Ipratropium/Albuterol 3 Ml Neb INH 3 ml RTQID PRN Administration Shortness of Air/Wheezing Amlodipine Besylate 5 mg 04/22/21 13:28 04/27/21 08:16 Amlodipine 5 Mg Tablet PO 5 mg DAILY LAYA Administration Apixaban 5 mg 04/22/21 09:00 04/27/21 08:16 Apixaban 5 Mg Tablet PO 5 mg BID LAYA Administration Aspirin 81 mg 04/22/21 09:00 04/27/21 08:16 Aspirin Chew 81 Mg Tablet PO 81 mg DAILY LAYA Administration Atorvastatin Calcium 40 mg 04/22/21 21:00 04/26/21 20:50 Atorvastatin 40 Mg Tablet PO 40 mg QPM LAYA Administration Bacitracin 1 packet 04/26/21 10:00 04/27/21 08:17 Bacitracin Zinc Oint 1 Packet TOP 4 packet BID LAYA Administration Budesonide 0.5 mg 04/25/21 19:00 04/27/21 07:45 Budesonide 0.5 Mg/2 Ml Neb INH 0.5 mg RTBID LAYA Administration Bupropion HCl 300 mg 04/23/21 09:00 04/27/21 08:16 Bupropion Xl 150 Mg Tablet PO 300 mg DAILY LAYA Administration Docusate Sodium 250 - 500 mg 04/25/21 09:00 04/27/21 08:16 Docusate Sodium 250 Mg Capsule PO 250 mg DAILY LAYA Administration Ferrous Gluconate 324 mg 04/26/21 15:00 04/27/21 08:16 Ferrous Gluconate 324 Mg Tablet PO 324 mg DAILYWM LAYA Administration Formoterol Fumarate 20 mcg 04/25/21 19:00 04/27/21 07:44 Formoterol Fumarate Neb 20 Mcg/2 Ml INH 20 mcg RTBID LAYA Administration Gabapentin 100 mg 04/22/21 14:00 04/27/21 13:10 Gabapentin 100 Mg Capsule PO 100 mg TID LAYA Administration Guaifenesin 600 mg 04/23/21 09:00 04/27/21 08:16 Guaifenesin 600 Mg Tablet PO 600 mg DAILY LAYA Administration Hydralazine HCl 50 mg 04/22/21 06:00 04/27/21 13:14 Hydralazine 25 Mg Tablet PO 50 mg TID LAYA Administration Vancomycin HCl 1 gm/ 500 mls @ 250 mls/hr 04/22/21 23:00 04/27/21 08:19 Vancomycin HCl 500 mg/ Sodium IV Infused Chloride Q24H LAYA Infusion Cefepime HCl 1 gm/ Sodium 100 mls @ 200 mls/hr 04/26/21 11:00 04/27/21 08:59 Chloride IV Infused BID LAYA Infusion Insulin Aspart 3 unit 04/23/21 17:00 04/27/21 12:06 Insulin Aspart 300 Unit/3 Ml Pen SUBQ 3 unit TIDWM LAYA Administration Protocol Insulin Aspart 3 - 11 unit 04/27/21 12:00 04/27/21 12:06 Insulin Aspart 300 Unit/3 Ml Pen SUBQ 11 unit 0800,1200,1700,2100 LAYA Administration Protocol Isosorbide Mononitrate 30 mg 04/22/21 13:28 04/27/21 08:16 Isosorbide Mononitrate Er 30 Mg Tablet PO 30 mg DAILY LAYA Administration Levothyroxine Sodium 25 mcg 04/23/21 07:00 04/27/21 05:41 Levothyroxine 25 Mcg Tablet PO 25 mcg QDAC LAYA Administration Metoprolol Succinate 25 mg 04/27/21 09:00 04/27/21 08:18 Metoprolol Succinate 25 Mg Tablet PO 25 mg DAILY LAYA Administration Morphine Sulfate 2 mg 04/22/21 02:00 04/26/21 23:42 Morphine 2 Mg/Ml Carpuject IVP 2 mg Q4HR PRN Administration PAIN Multivitamins/Minerals 1 tab 04/22/21 11:00 04/27/21 08:16 Multivitamin W/Minerals Tablet PO 1 tab DAILYWM LAYA Administration Nicotine 1 patch 04/22/21 09:00 04/27/21 08:19 Nicotine 21 Mg Patch TOP 1 patch DAILY LAYA Administration Ondansetron HCl 4 mg 04/22/21 01:59 04/23/21 08:52 Ondansetron Odt 4 Mg Tablet TL 4 mg Q4HR PRN Administration Nausea / Vomiting Oxycodone HCl 5 mg 04/22/21 02:00 04/27/21 13:15 Oxycodone 5 Mg Tablet PO 5 mg Q4HR PRN Administration PAIN Polyethylene Glycol 17 gm 04/25/21 09:00 04/27/21 08:16 Polyethylene Glycol 3350 17 Gm Packet PO 17 gm DAILY LAYA Administration Prednisone 10 mg 04/27/21 09:00 04/27/21 08:16 Prednisone 10 Mg Tablet PO 10 mg DAILY LAYA Administration Saccharomyces Boulardii 250 mg 04/22/21 17:00 04/27/21 08:16 Saccharomyces Boulardii 250 Mg Capsule PO 250 mg BIDWM LAYA Administration Senna 8.6 - 17.2 mg 04/25/21 09:00 04/27/21 08:15 Senna 8.6 Mg Tablet PO 8.6 mg DAILY LAYA Administration Sertraline HCl 50 mg 04/27/21 09:00 04/27/21 08:43 Sertraline 50 Mg Tablet PO 50 mg DAILY LAYA Administration Sodium Chloride 10 ml 04/21/21 23:22 04/27/21 05:42 Sodium Chloride Flush 0.9% 10 Ml Syringe IVP 10 ml PRN PRN Administration NEEDED PER PROVIDER ORDERS Sodium Chloride 10 ml 04/22/21 01:00 04/27/21 08:31 Sodium Chloride Flush 0.9% 10 Ml Syringe IVP 10 ml 0100,0900,1700 LAYA Administration Throat Lozenges 1 lozenge 04/23/21 09:14 04/23/21 20:05 Benzocaine/Menthol Lozenge MM 1 lozenge Q2HR PRN Administration Throat pain Trazodone HCl 100 mg 04/27/21 00:00 04/27/21 00:52 Trazodone 50 Mg Tablet PO 100 mg QPM LAYA Administration - Lab Result Fish Bone Diagrams: 04/27/21 07:06 04/27/21 07:06 - Additional Planning My Orders: My Active Orders 04/26/21 14:37 Miscellaenous Nursing Order [RC] DAILY 04/26/21 15:00 Ferrous Gluconate [Fergon] 324 mg PO DAILYWM 04/27/21 Home Health Referral [CONS] Routine 04/27/21 08:13 Gabapentin [Neurontin] 300 mg PO BID PRN 04/27/21 09:00 Sertraline [Zoloft] 50 mg PO DAILY 04/27/21 12:00 Insulin Aspart [NovoLOG] 3 - 11 unit SUBQ 0800,1200,1700,2100 04/28/21 05:00 CRP - C-REACTIVE PROTEIN [CHEM] DAILYLAB 04/28/21 09:00 Furosemide [Lasix] 40 mg PO DAILY 04/29/21 05:00 CRP - C-REACTIVE PROTEIN [CHEM] DAILYLAB 04/30/21 05:00 CRP - C-REACTIVE PROTEIN [CHEM] DAILYLAB 05/01/21 05:00 CRP - C-REACTIVE PROTEIN [CHEM] DAILYLAB Subjective - Subjective Patient Reports: Resting Comfortably Objective Vital Signs: Vital Signs - 24 hr 04/26/21 04/26/21 04/26/21 15:43 19:21 19:42 Temperature 36.4 C L 36.5 C Heart Rate 68 Heart Rate [ 75 79 Brachial] Respiratory 24 18 24 Rate Blood Pressure 163/88 H [Left Brachial artery] Blood Pressure 163/78 H [Right Brachial artery] O2 Saturation 98 98 04/26/21 04/26/21 04/27/21 20:57 23:17 00:31 Temperature 36.6 C Heart Rate 82 Heart Rate [ 72 Brachial] Respiratory 20 16 Rate Blood Pressure [Left Brachial artery] Blood Pressure 155/84 H 145/74 H [Right Brachial artery] O2 Saturation 98 04/27/21 04/27/21 04/27/21 04:35 06:52 07:28 Temperature 36.7 C 36.6 C Heart Rate Heart Rate [ 98 78 91 Brachial] Respiratory 20 18 Rate Blood Pressure [Left Brachial artery] Blood Pressure 193/88 H 171/84 H 196/90 H [Right Brachial artery] O2 Saturation 94 96 04/27/21 04/27/21 04/27/21 07:47 08:32 08:48 Temperature Heart Rate 85 Heart Rate [ 78 93 Brachial] Respiratory 18 Rate Blood Pressure [Left Brachial artery] Blood Pressure 163/94 H 182/69 H [Right Brachial artery] O2 Saturation 04/27/21 12:59 Temperature 36.4 C L Heart Rate Heart Rate [ 100 Brachial] Respiratory 20 Rate Blood Pressure [Left Brachial artery] Blood Pressure 154/95 H [Right Brachial artery] O2 Saturation 96 Oxygen O2 Source Room air I&O (Last 24 Hrs): Intake and Output Totals x24h 04/25/21 04/26/21 04/27/21 23:59 23:59 23:59 Intake Total 3626 2650.000 1300 Output Total 5025 3125 2750 Balance -1399 -475.000 -1450 General: Alert, Oriented x3, Cooperative, No acute distress HEENT: Atraumatic Neck: Supple Lymphatic: no adenopathy Neuro: Alert, Non Focal, Oriented Times 3 Cardiovascular: Regular rate, Normal S1, Normal S2 Respiratory: Chest non-tender, No respiratory distress Abdomen: Normal bowel sounds, Soft, No tenderness Extremities: Normal pulses, Other (swelling, erythema, tenderness and warmth on right lower extremity are reduced, there are two spot with skin broken, and xeroform gauze dressing are on. left lower extremity infeciton is stable) - Results Results: Laboratory Results WBC 8.4 x10^3/uL (4.8-10.8) 04/27/21 07:06 RBC 4.07 10^6/uL (4.70-6.10) L 04/27/21 07:06 Hgb 10.6 g/dL (14.0-18.0) L 04/27/21 07:06 Hct 32.5 % (42.0-52.0) L 04/27/21 07:06 MCV 79.9 fL (80.0-94.0) L 04/27/21 07:06 MCH 26.0 pg (27.0-31.0) L 04/27/21 07:06 MCHC 32.6 g/dL (32.0-36.0) 04/27/21 07:06 RDW 15.1 % (12.0-15.0) H 04/27/21 07:06 Plt Count 244 10^3/uL (130-450) 04/27/21 07:06 MPV 10.4 fL (7.4-11.4) 04/27/21 07:06 Reticulocyte % (Auto) 0.90 % (0.5-2.3) 04/26/21 05:48 Neut # (Auto) 7.7 10^3/uL (1.5-6.6) H 04/27/21 07:06 Lymph # (Auto) 0.4 10^3/uL (1.5-3.5) L 04/27/21 07:06 [place] # (Auto) 0.1 10^3/uL (0.0-1.0) 04/27/21 07:06 Eos # (Auto) 0.0 10^3/uL (0.0-0.7) 04/27/21 07:06 Baso # (Auto) 0.0 10^3/uL (0.0-0.1) 04/27/21 07:06 Absolute Nucleated RBC 0.00 x10^3/uL 04/27/21 07:06 Nucleated RBC % 0.0 /100WBC 04/27/21 07:06 Absolute Retic 0.032 10^6/uL (0.020-0.110) 04/26/21 05:48 Sodium 132 mmol/L (135-145) L 04/27/21 07:06 Potassium 4.5 mmol/L (3.5-5.0) 04/27/21 07:06 Chloride 99 mmol/L (101-111) L 04/27/21 07:06 Carbon Dioxide 21 mmol/L (21-32) 04/27/21 07:06 Anion Gap 12.0 (6-13) 04/27/21 07:06 BUN 30 mg/dL (6-20) H 04/27/21 07:06 Creatinine 1.6 mg/dL (0.6-1.2) H 04/27/21 07:06 Estimated GFR (MDRD) 43 (>89) L 04/27/21 07:06 Glucose 340 mg/dL (70-100) H 04/27/21 07:06 POC Whole Bld Glucose 388 mg/dL (70 - 100) H 04/27/21 11:11 Estimat Average Glucose 166 mg/dL (70-100) H 04/22/21 08:23 Hemoglobin A1c % 7.4 % (4.27-6.07) H 04/22/21 08:23 Calcium 8.2 mg/dL (8.5-10.3) L 04/27/21 07:06 Iron 19 ug/dL (45-182) L 04/26/21 05:48 TIBC 227 ug/dL (250-450) L 04/26/21 05:48 % Saturation 8 % (20-50) L 04/26/21 05:48 Transferrin 162 mg/dL (180-329) L 04/26/21 05:48 Ferritin 222.7 ng/mL (23.9-336.2) 04/26/21 05:48 Lactate Dehydrogenase 187 IU/L (91-225) 04/26/21 05:48 C-Reactive Protein 9.5 mg/dL (0-1.0) H 04/27/21 07:06 B-Natriuretic Peptide 650 pg/mL (5-100) H 04/23/21 21:41 Vitamin B12 283 pg/mL (180-914) 04/26/21 05:48 TSH 1.63 uIU/mL (0.34-5.60) 04/22/21 06:06 Nasal Adenovirus (PCR) NOT DETECTED 04/22/21 09:10 Nasal B. parapertussis DNA (PCR) NOT DETECTED 04/22/21 09:10 Nasal Coronavir 229E PCR NOT DETECTED 04/22/21 09:10 Nasal Coronavir HKU1 PCR NOT DETECTED 04/22/21 09:10 Nasal Coronavir NL63 PCR NOT DETECTED 04/22/21 09:10 Nasal Coronavir OC43 PCR NOT DETECTED 04/22/21 09:10 Nasal Enterovir/Rhinovir PCR NOT DETECTED 04/22/21 09:10 Nasal Influenza B PCR NOT DETECTED 04/22/21 09:10 Nasal Influenza A PCR NOT DETECTED 04/22/21 09:10 Nasal Parainfluen 1 PCR NOT DETECTED 04/22/21 09:10 Nasal Parainfluen 2 PCR NOT DETECTED 04/22/21 09:10 Nasal Parainfluen 3 PCR NOT DETECTED 04/22/21 09:10 Nasal Parainfluen 4 PCR NOT DETECTED 04/22/21 09:10 Nasal RSV (PCR) NOT DETECTED 04/22/21 09:10 Nasal B.pertussis DNA PCR NOT DETECTED 04/22/21 09:10 Nasal C.pneumoniae (PCR) NOT DETECTED 04/22/21 09:10 Juan Human Metapneumo PCR NOT DETECTED 04/22/21 09:10 Nasal M.pneumoniae (PCR) NOT DETECTED 04/22/21 09:10 Nasal SARS-CoV-2 (PCR) NOT DETECTED 04/22/21 09:10 Last Dose Date 04/26/21 04/26/21 22:22 Last Dose Time 00:46 04/26/21 22:22 Vancomycin Trough 21.1 ug/mL (10.0-20.0) H 04/26/21 22:22 Urine Opiates Screen POSITIVE (NEGATIVE) H 04/22/21 13:15 Ur Oxycodone Screen POSITIVE (NEGATIVE) H 04/22/21 13:15 Urine Methadone Screen NEGATIVE (NEGATIVE) 04/22/21 13:15 Ur Propoxyphene Screen NEGATIVE (NEGATIVE) 04/22/21 13:15 Ur Barbiturates Screen NEGATIVE (NEGATIVE) 04/22/21 13:15 Ur Tricyclics Screen NEGATIVE (NEGATIVE) 04/22/21 13:15 Ur Phencyclidine Scrn NEGATIVE (NEGATIVE) 04/22/21 13:15 Ur Amphetamine Screen NEGATIVE (NEGATIVE) 04/22/21 13:15 U Methamphetamines Scrn NEGATIVE (NEGATIVE) 04/22/21 13:15 U Benzodiazepines Scrn NEGATIVE (NEGATIVE) 04/22/21 13:15 Urine Cocaine Screen NEGATIVE (NEGATIVE) 04/22/21 13:15 U Cannabinoids Screen NEGATIVE (NEGATIVE) 04/22/21 13:15 Sepsis Event Note (H) - Evaluation Current Stage of Sepsis: Sepsis Possible source of Sepsis: positive: Skin/soft tissue - Sepsis Criteria Sepsis Criteria: Recorded Temperature greater than 38.3C or Less than 36C, WBC count greater than 12,000 or less than 4000 ABX Reporting Has patient been on IV antibiotics over the past 48 hours?: Yes Current Medications - Current Medications Current Medications: Active Medications Acetaminophen (Acetaminophen 325 Mg Tablet) 650 mg PO Q4HR PRN PRN Reason: Pain or Fever > 38C (100.4F) Last Admin: 04/27/21 08:18 Dose: 650 mg Documented by: Albuterol (Albuterol Neb 2.5 Mg/3 Ml) 2.5 mg INH RTQ4H PRN PRN Reason: Wheezing Last Admin: 04/26/21 19:21 Dose: 2.5 mg Documented by: Albuterol/Ipratropium (Ipratropium/Albuterol 3 Ml Neb) 3 ml INH RTQID PRN PRN Reason: Shortness of Air/Wheezing Last Admin: 04/27/21 07:44 Dose: 3 ml Documented by: Amlodipine Besylate (Amlodipine 5 Mg Tablet) 5 mg PO DAILY LAYA Last Admin: 04/27/21 08:16 Dose: 5 mg Documented by: Apixaban (Apixaban 5 Mg Tablet) 5 mg PO BID [facility] Last Admin: 04/27/21 08:16 Dose: 5 mg Documented by: Aspirin (Aspirin Chew 81 Mg Tablet) 81 mg PO DAILY [facility] Last Admin: 04/27/21 08:16 Dose: 81 mg Documented by: Atorvastatin Calcium (Atorvastatin 40 Mg Tablet) 40 mg PO QPM [facility] Last Admin: 04/26/21 20:50 Dose: 40 mg Documented by: Bacitracin (Bacitracin Zinc Oint 1 Packet) 1 packet TOP BID [facility] Last Admin: 04/27/21 08:17 Dose: 4 packet Documented by: Budesonide (Budesonide 0.5 Mg/2 Ml Neb) 0.5 mg INH RTBID [facility] Last Admin: 04/27/21 07:45 Dose: 0.5 mg Documented by: Bupropion HCl (Bupropion Xl 150 Mg Tablet) 300 mg PO DAILY [facility] Last Admin: 04/27/21 08:16 Dose: 300 mg Documented by: Docusate Sodium (Docusate Sodium 250 Mg Capsule) 250 - 500 mg PO DAILY [facility] Last Admin: 04/27/21 08:16 Dose: 250 mg Documented by: Ferrous Gluconate (Ferrous Gluconate 324 Mg Tablet) 324 mg PO DAILYWM [facility] Last Admin: 04/27/21 08:16 Dose: 324 mg Documented by: Formoterol Fumarate (Formoterol Fumarate Neb 20 Mcg/2 Ml) 20 mcg INH RTBID [facility] Last Admin: 04/27/21 07:44 Dose: 20 mcg Documented by: Furosemide (Furosemide 40 Mg Tablet) 40 mg PO DAILY [facility] Gabapentin (Gabapentin 100 Mg Capsule) 100 mg PO TID [facility] Last Admin: 04/27/21 13:10 Dose: 100 mg Documented by: Gabapentin (Gabapentin 300 Mg Capsule) 300 mg PO BID PRN PRN Reason: PAIN Guaifenesin (Guaifenesin 600 Mg Tablet) 600 mg PO DAILY [facility] Last Admin: 04/27/21 08:16 Dose: 600 mg Documented by: Hydralazine HCl (Hydralazine 25 Mg Tablet) 50 mg PO TID [facility] Last Admin: 04/27/21 13:14 Dose: 50 mg Documented by: Hydralazine HCl (Hydralazine Inj 20 Mg/Ml Vial) 10 mg IVP TID PRN PRN Reason: Hypertensive Emergency Vancomycin HCl 1 gm/Vancomycin HCl 500 mg/ Sodium Chloride 500 mls @ 250 mls/hr IV Q24H [facility] Last Infusion: 04/27/21 08:19 Dose: Infused Documented by: Cefepime HCl 1 gm/ Sodium (Chloride) 100 mls @ 200 mls/hr IV BID [facility] Last Infusion: 04/27/21 08:59 Dose: Infused Documented by: Insulin Aspart (Insulin Aspart 300 Unit/3 Ml Pen) 3 unit SUBQ TIDWM [facility]; Protocol Last Admin: 04/27/21 12:06 Dose: 3 unit Documented by: Insulin Aspart (Insulin Aspart 300 Unit/3 Ml Pen) 3 - 11 unit SUBQ 0800,1200,1700,2100 [facility]; Protocol Last Admin: 04/27/21 12:06 Dose: 11 unit Documented by: Isosorbide Mononitrate (Isosorbide Mononitrate Er 30 Mg Tablet) 30 mg PO DAILY [facility] Last Admin: 04/27/21 08:16 Dose: 30 mg Documented by: Levalbuterol HCl (Levalbuterol 1.25 Mg/3 Ml Neb) 1.25 mg INH Q4H PRN PRN Reason: Shortness of Air/Wheezing Levothyroxine Sodium (Levothyroxine 25 Mcg Tablet) 25 mcg PO QDAC [facility] Last Admin: 04/27/21 05:41 Dose: 25 mcg Documented by: Metoprolol Succinate (Metoprolol Succinate 25 Mg Tablet) 25 mg PO DAILY [facility] Last Admin: 04/27/21 08:18 Dose: 25 mg Documented by: Morphine Sulfate (Morphine 2 Mg/Ml Carpuject) 2 mg IVP Q4HR PRN PRN Reason: PAIN Last Admin: 04/26/21 23:42 Dose: 2 mg Documented by: Multivitamins/Minerals (Multivitamin W/Minerals Tablet) 1 tab PO DAILYWM [facility] Last Admin: 04/27/21 08:16 Dose: 1 tab Documented by: Nicotine (Nicotine 21 Mg Patch) 1 patch TOP DAILY [facility] Last Admin: 04/27/21 08:19 Dose: 1 patch Documented by: Ondansetron HCl (Ondansetron Odt 4 Mg Tablet) 4 mg TL Q4HR PRN PRN Reason: Nausea / Vomiting Last Admin: 04/23/21 08:52 Dose: 4 mg Documented by: Ondansetron HCl (Ondansetron 4 Mg/2 Ml Vial) 4 mg IVP Q6HR PRN PRN Reason: Nausea / Vomiting Oxycodone HCl (Oxycodone 5 Mg Tablet) 5 mg PO Q4HR PRN PRN Reason: PAIN Last Admin: 04/27/21 13:15 Dose: 5 mg Documented by: Polyethylene Glycol (Polyethylene Glycol 3350 17 Gm Packet) 17 gm PO DAILY [facility] Last Admin: 04/27/21 08:16 Dose: 17 gm Documented by: Prednisone (Prednisone 10 Mg Tablet) 10 mg PO DAILY [facility] Last Admin: 04/27/21 08:16 Dose: 10 mg Documented by: Saccharomyces Boulardii (Saccharomyces Boulardii 250 Mg Capsule) 250 mg PO BIDWM [facility] Last Admin: 04/27/21 08:16 Dose: 250 mg Documented by: Senna (Senna 8.6 Mg Tablet) 8.6 - 17.2 mg PO DAILY [facility] Last Admin: 04/27/21 08:15 Dose: 8.6 mg Documented by: Sertraline HCl (Sertraline 50 Mg Tablet) 50 mg PO DAILY [facility] Last Admin: 04/27/21 08:43 Dose: 50 mg Documented by: Sodium Chloride (Sodium Chloride Flush 0.9% 10 Ml Syringe) 10 ml IVP PRN PRN PRN Reason: NEEDED PER PROVIDER ORDERS Last Admin: 04/27/21 05:42 Dose: 10 ml Documented by: Sodium Chloride (Sodium Chloride Flush 0.9% 10 Ml Syringe) 10 ml IVP 0100,0900,1700 [facility] Last Admin: 04/27/21 08:31 Dose: 10 ml Documented by: Throat Lozenges (Benzocaine/Menthol Lozenge) 1 lozenge MM Q2HR PRN PRN Reason: Throat pain Last Admin: 04/23/21 20:05 Dose: 1 lozenge Documented by: Trazodone HCl (Trazodone 50 Mg Tablet) 100 mg PO QPM [facility] Last Admin: 04/27/21 00:52 Dose: 100 mg Documented by: Albuterol Sulfate [Proair Hfa Inhaler] 2 puffs PO Q4H PRN 04/22/21 Aspirin [Aspirin EC] 81 mg PO DAILY 04/22/21 Atorvastatin Calcium 40 mg PO QPM 04/22/21 Furosemide [Lasix] 40 mg PO DAILY 04/22/21 Gabapentin [Neurontin] 300 mg PO BID PRN 04/22/21 Glipizide [Glipizide ER] 2.5 mg PO DAILY 04/22/21 Hydralazine HCl 50 mg PO TID 04/22/21 Isosorbide Mononitrate ER [Imdur] 30 mg PO DAILY 04/22/21 Levothyroxine [Synthroid] 25 mcg PO DAILY 04/22/21 Metoprolol Tartrate [Lopressor] 25 mg PO BID 04/22/21 Potassium Chloride 20 meq PO DAILY 04/22/21 Rivaroxaban [Xarelto] 15 mg PO DAILY 04/22/21 Sertraline [Zoloft] 50 mg PO DAILY 04/22/21 Tiotropium [place] [Spiriva] 1 cap PO DAILY 04/22/21 amLODIPine [Norvasc] 5 mg PO DAILY 04/22/21 buPROPion HCL [Bupropion Xl] 300 mg PO DAILY 04/22/21 carvediloL [Coreg] 12.5 mg PO BID 04/22/21 lisinopriL [Zestril] 5 mg PO DAILY 04/22/21 predniSONE [Deltasone] 10 mg PO DAILY 04/22/21 traZODone [Desyrel] 100 mg PO QPM 04/22/21
[2021-04-27] MEDS: MORPHINE 2 MG/ML CARPUJECT IVP PRN ×2 (16:36→20:56)
[2021-04-27] MEDS: ATORVASTATIN 40 MG TABLET PO SCH (20:53)
[2021-04-27] MEDS: VANCOMYCIN INJ 1 GM, VANCOMYCIN INJ 500 MG in SODIUM CHLORIDE 0.9% 500 ML IV SCH (22:31)
[2021-04-28] MEDS: MORPHINE 2 MG/ML CARPUJECT IVP PRN ×2 (04:32→14:35)
[2021-04-28] MEDS: GABAPENTIN 100 MG CAPSULE PO SCH ×2 (05:39→14:29)
[2021-04-28] MEDS: LEVOTHYROXINE 25 MCG TABLET PO SCH (05:39)
[2021-04-28] MEDS: hydrALAZINE 25 MG TABLET PO SCH ×2 (05:39→14:29)
[2021-04-28 06:53] LABS: CREATININE 1.6 mg/dL (0.6-1.2); POTASSIUM 3.9 mmol/L (3.5-5.0)
[2021-04-28 06:54] LABS: CALCIUM 8.1 mg/dL (8.5-10.3)
[2021-04-28] MEDS: BUDESONIDE 0.5 MG/2 ML NEB INH SCH (07:14)
[2021-04-28] MEDS: IPRATROPIUM/ALBUTEROL 3 ML NEB INH PRN (07:15)
[2021-04-28] MEDS: FORMOTEROL FUMARATE NEB 20 MCG/2 ML INH SCH (07:15)
[2021-04-28] MEDS: SERTRALINE 50 MG TABLET PO SCH (08:04)
[2021-04-28] MEDS: amLODIPine 5 MG TABLET PO SCH (08:04)
[2021-04-28] MEDS: METOPROLOL SUCCINATE 25 MG TABLET PO SCH (08:04)
[2021-04-28] MEDS: DOCUSATE SODIUM 250 MG CAPSULE PO SCH (08:04)
[2021-04-28] MEDS: ISOSORBIDE MONONITRATE ER 30 MG TABLET PO SCH (08:04)
[2021-04-28] MEDS: MULTIVITAMIN W/MINERALS TABLET PO SCH (08:04)
[2021-04-28] MEDS: guaiFENesin 600 MG TABLET PO SCH (08:05)
[2021-04-28] MEDS: INSULIN ASPART 300 UNIT/3 ML PEN SUBQ SCH ×4 (08:05→11:55)
[2021-04-28] MEDS: SENNA 8.6 MG TABLET PO SCH (08:05)
[2021-04-28] MEDS: ASPIRIN CHEW 81 MG TABLET PO SCH (08:05)
[2021-04-28] MEDS: buPROPion XL 150 MG TABLET PO SCH (08:05)
[2021-04-28] MEDS: SACCHAROMYCES BOULARDII 250 MG CAPSULE PO SCH (08:05)
[2021-04-28] MEDS: APIXABAN 5 MG TABLET PO SCH (08:05)
[2021-04-28] MEDS: FERROUS GLUCONATE 324 MG TABLET PO SCH (08:05)
[2021-04-28] MEDS ORDERED: FUROSEMIDE 40 MG TABLET PO SCH (09:00)
[2021-04-28] MEDS ORDERED: NICOTINE 14 MG PATCH TOP SCH (09:00)
[2021-04-28 09:57] LABS: EOSINOPHILS % (AUTO) 1.2 %; HCT - HEMATOCRIT 28.9 % (42.0-52.0); HGB - HEMOGLOBIN 9.5 g/dL (14.0-18.0); LYMPHOCYTES % (AUTO) 8.1 %; MEAN CORPUSCULAR HEMOGLOBIN 26.2 pg (27.0-31.0); MEAN CORPUSCULAR HGB CONC 32.9 g/dL (32.0-36.0); MEAN CORPUSCULAR VOLUME 79.6 fL (80.0-94.0); MONOCYTES % (AUTO) 7.2 %; NEUTROPHILS % (AUTO) 80.9 %; PLT - PLATELET COUNT 245 10^3/uL (130-450); RED BLOOD COUNT 3.63 10^6/uL (4.70-6.10); RED CELL DISTRIBUTION WIDTH 15.2 % (12.0-15.0); WHITE BLOOD COUNT 10.2 x10^3/uL (4.8-10.8)
[2021-04-28 09:58] LABS: BASOPHILS % (AUTO) 0.2 %; EOSINOPHILS # (AUTO) 0.1 10^3/uL (0.0-0.7); LYMPHOCYTES # (AUTO) 0.9 10^3/uL (1.5-3.5); MONOCYTES # (AUTO) 0.7 10^3/uL (0.0-1.0); NEUTROPHILS # (AUTO) 8.3 10^3/uL (1.5-6.6)
[2021-04-28] MEDS: predniSONE 10 MG TABLET PO SCH (09:58)
[2021-04-28] MEDS: BACITRACIN ZINC OINT 1 PACKET TOP SCH (09:58)
[2021-04-28] MEDS: CEFEPIME 1 GM in SODIUM CHLORIDE 0.9% MINIBAG 100 ML IV SCH (09:58)
[2021-04-28] MEDS: SODIUM CHLORIDE FLUSH 0.9% 10 ML SYRINGE IVP SCH (09:59)
[2021-04-28] MEDS: polyethylene glycoL 3350 17 GM PACKET PO SCH (09:59)
--- NOTE | 2021-04-28 11:03 | Discharge Plan ---
Discharge Plan Problem Reviewed?: Yes Disposition: Home Health Service Condition: Stable Prescriptions: oxyCODONE [Roxicodone] 5 mg PO Q4HR PRN #20 tablet PRN Reason: Pain Bacitracin Zinc Oint [Bacitracin] 1 packet TOP BID #16 packet cefUROXime axetiL [Ceftin] 500 mg PO Q12H #32 tablet Ferrous Gluconate [Fergon] 324 mg PO DAILYWM #30 tablet Saccharomyces Boulardii [Florastor] 250 mg PO BIDWM #16 cap Diet: Diabetic Activity Restrictions: Activity as Tolerated Shower Restrictions: No (fall precaution) Instruction Topics: Mupirocin skin cream or ointment, Cefuroxime tablets, Oxycodone tablets or capsules, Infec Wound Recognize Tx, Cellulitis Health Concerns: cellulitis/wound Plan of Treatment: Your bilateral lower extremities cellulitis/wound had great improved after you were treated in hospital. You are prescribed antibiotics Ceftin, bacitracin zinc oint for continuing treatment course. Home health RN are arranged for your dressing change and wound care, you may resume your wound care, and followup with wound care center as out-pt as needed. Your home Metoprolol medication are hold because you had Coreg medication. You may followup with your PCP in one week to have medication adjustment as needed, and for wound care. Care Goals: Stabilization and improvement/resolved of your leg infections Assessment: Discussed the care plan in detail with you, answered your questions, you understood Additional Instructions or Follow Up instructions: You may follow-up with your PCP in 1 week. should your symptoms return or worsen, you may present to ER or call 911 for help Follow-Up Care: Home Health - PT, Home Health - OT No Smoking: If you smoke, Please STOP! Call for help.
--- NOTE | 2021-04-28 11:20 | DISCHARGE SUMMARY ---
Discharge Summary Admit Date: 04/22/21 Discharge Date: 04/28/21 Discharging Provider: Jay Muñoz Condition at Discharge: Stable Discharge Disposition: Home Health Service Discharge Facility Name: home - DIAGNOSES Discharge Diagnoses with Status of Each Condition: (1) Cellulitis of both lower extremities with superficial skin breakdown significantly improved, CRP is steadily reduced from 20 to 5. WBC is at normal arrange, pt has no fever. Blood culture is negative For bacteremia. Patient is prescribed antibiotics for continued treatment Course. pt has three cutaneous laceration in right lower extremity, and two small cutaneous lacerations at left lower extremities. Wound culture, per pit laborer verbally reported as far, no bacteria growth. Resume patient's home wound care and arranged skilled nurse wound care as well. (2) Nausea and vomiting, Resolved resolved (3) CKD (chronic kidney disease) improved. creatinine is 1.6, from admission at 2.0, followup with PCP and care aid as out-pt (4) Atrial fibrillation stable, resume his home coreg and anticoagulation. pt's home meds also had metoprolol, it is duplicate meds to Coreg, and hold now, followup with his PCP in one week continue to manage (5) Coronary artery disease stable, resume home meds (6) Diastolic CHF stable, resume home meds (7) COPD (chronic obstructive pulmonary disease) stable (8) Hypertension stable (9) Type 2 diabetes mellitus stable, A1C is 7.4, resume home meds (10) weakness PT/OT evaluated and treated at hospital. pt is arranged home health PT/OT (11)hyperglycemia resolved (12)depression stable, resume home meds - [facility] History of Present Illness: refer from Dr. lopez's HPI on 04/22/21 This is a 78-year-old male with a past medical history significant for type 2 diabetes mellitus, hypertension, coronary artery disease, CKD who presented to an outside hospital today complaining of fevers and chills. He reportedly complained of dyspnea as well and the initial concern was for pneumonia. He was given ceftriaxone and azithromycin empirically. Imaging revealed no evidence of pneumonia and CT of the chest, abdomen, and pelvis revealed no acute abnormalities. His urinalysis was also unremarkable. The patient does have chronic bilateral lower extremity edema and wounds but these appear to be more erythematous today and indurated. The erythema is new for the patient and the concern was for cellulitis as the source of his infection as he presented with a fever and elevated white count of 20,000. He was then given vancomycin. His renal function was at baseline and his lactic acid within normal limits. Given there were no beds available at the outside hospital, the patient was transferred here for further management. The patient currently thousand he feels better compared to yesterday. He states he came and because of nausea and vomiting which began yesterday morning at 7 AM when he woke up. He also had left lower quadrant abdominal pain. He reports his last bowel movement was 2 days ago. He currently reports no more emesis. He does not feel short of breath and this also began over the past day or so. Denies any chest pain. He does report fever as well as chills and rigors at home. Denies any dysuria, hematuria. The only thing he has noticed over the past few days that his right leg became more erythematous especially over his calf. He states both of his legs are chronically edematous and can be erythematous at times but this is worse than usual. He does take Lasix at home He continues to smoke a pack a day and has been doing so for over 50 years. He was drinking alcohol on a regular basis up until a few months ago. He is not sure if he has cirrhosis but states he has been told he has liver problems in the past. He said he has a history of bladder cancer but this is in remission. He also tells me that he had 2 stents placed earlier this year at [facility] in [place] and that he also suffered from a cardiac arrest during that hospitalization. He does have diabetes but is not on insulin at home. We discussed goals of care and he would like to be a full code. - ALLERGIES Allergies/Adverse Reactions: Allergies Allergy/AdvReac Type Severity Reaction Status Date / Time Penicillins Allergy Hives Verified 04/22/21 02:06 - MEDICATIONS Home Medications: Ambulatory Orders Medication Instructions Recorded Confirmed Albuterol Sulfate [Proair Hfa 2 puffs PO Q4H PRN 04/22/21 04/22/21 Inhaler] Aspirin [Aspirin EC] 81 mg PO DAILY 04/22/21 04/22/21 Atorvastatin Calcium 40 mg PO QPM 04/22/21 04/22/21 Furosemide [Lasix] 40 mg PO DAILY 04/22/21 04/22/21 Gabapentin [Neurontin] 300 mg PO BID PRN 04/22/21 04/22/21 Glipizide [Glipizide ER] 2.5 mg PO DAILY 04/22/21 04/22/21 Hydralazine HCl 50 mg PO TID 04/22/21 04/22/21 Isosorbide Mononitrate ER [Imdur] 30 mg PO DAILY 04/22/21 04/22/21 Levothyroxine [Synthroid] 25 mcg PO DAILY 04/22/21 04/22/21 Potassium Chloride 20 meq PO DAILY 04/22/21 04/22/21 Rivaroxaban [Xarelto] 15 mg PO DAILY 04/22/21 04/22/21 Sertraline [Zoloft] 50 mg PO DAILY 04/22/21 04/22/21 Tiotropium Gustine [Spiriva] 1 cap PO DAILY 04/22/21 04/22/21 amLODIPine [Norvasc] 5 mg PO DAILY 04/22/21 04/22/21 buPROPion HCL [Bupropion Xl] 300 mg PO DAILY 04/22/21 04/22/21 carvediloL [Coreg] 12.5 mg PO BID 04/22/21 04/22/21 lisinopriL [Zestril] 5 mg PO DAILY 04/22/21 04/22/21 predniSONE [Deltasone] 10 mg PO DAILY 04/22/21 04/22/21 traZODone [Desyrel] 100 mg PO QPM 04/22/21 04/22/21 Bacitracin Zinc Oint [Bacitracin] 1 packet TOP BID #16 packet 04/28/21 Ferrous Gluconate [Fergon] 324 mg PO DAILYWM #30 tablet 04/28/21 Saccharomyces Boulardii [Florastor] 250 mg PO BIDWM #16 cap 04/28/21 cefUROXime axetiL [Ceftin] 500 mg PO Q12H #32 tablet 04/28/21 oxyCODONE [Roxicodone] 5 mg PO Q4HR PRN #20 tablet 04/28/21 - PHYSICAL EXAM AT DISCHARGE General Appearance: positive: No acute distress, Alert. negative: Lethargic Eyes Bilateral: positive: Normal inspection, No lid inflammation ENT: positive: ENT inspection nml, No signs of dehydration. negative: Purulent nasal drainage Neck: positive: Nml inspection, Trachea midline. negative: Tracheal deviation Respiratory: positive: Chest non-tender, No respiratory distress. negative: Wheezes, Rales Cardiovascular: positive: Regular rate & rhythm. negative: Tachycardia, Bradycardia, Systolic murmur Peripheral Pulses: positive: 2+ Abdomen: positive: Non-tender, Nml bowel sounds, No distention. negative: Tenderness Back: positive: Nml inspection Skin: positive: Warm, Dry, Laceration (cm). negative: Cyanosis Extremities: positive: Non-tender, Full ROM, Other (mild erythema at bilateral lower extremities, without swelling, tenderness. ) Neurologic/Psychiatric: positive: Oriented x3, Motor nml, Sensation nml, Mood/affect nml. negative: Weakness, Sensory loss, Facial droop, Slurred/abnml speech, Depressed mood/affect - LABS Result Diagrams: 04/28/21 06:17 04/28/21 06:17 - SEPSIS Current Stage of Sepsis: Sepsis Possible source of Sepsis: Skin/soft tissue Sepsis Criteria: Recorded Temperature greater than 38.3C or Less than 36C, WBC count greater than 12,000 or less than 4000 - FOLLOW UP Follow Up: Your bilateral lower extremities cellulitis/wound had great improved after you were treated in hospital. You are prescribed antibiotics Ceftin, bacitracin zinc oint for continuing treatment course. Home health RN are arranged for your dressing change and wound care, you may resume your wound care, and followup with wound care center as out-pt as needed. Your home Metoprolol medication are hold because you had Coreg medication. You may followup with your PCP in one week to have medication adjustment as needed, and for wound care. You may follow-up with your PCP in 1 week. should your symptoms return or worsen, you may present to ER or call 911 for help - TIME SPENT Time Spent in Discharge (Minutes): 30
[2021-04-28 15:40] VITALS: BP 146/88
== END 2021-04-28 17:00 | disposition home health service (06) | DRG 872 ==
LOC: MS2 04-22 01:15
PROVIDERS: ADMIT Internal Medicine; ATTEND Nurse Practitioner Gerontology
DX: A41.9 Sepsis, unspecified organism (principal); L03.115 Cellulitis of right lower limb; I13.0 Hypertensive heart and chronic kidney disease with heart failure and stage 1 through stage 4 chronic kidney disease, or unspecified chronic kidney disease; I50.32 Chronic diastolic (congestive) heart failure; L03.116 Cellulitis of left lower limb; I25.10 Atherosclerotic heart disease of native coronary artery without angina pectoris; I48.91 Unspecified atrial fibrillation; N18.30 Chronic kidney disease, stage 3 unspecified; E11.22 Type 2 diabetes mellitus with diabetic chronic kidney disease; E11.65 Type 2 diabetes mellitus with hyperglycemia; J44.9 Chronic obstructive pulmonary disease, unspecified; F17.200 Nicotine dependence, unspecified, uncomplicated; F32.A Depression, unspecified; R11.2 Nausea with vomiting, unspecified; R53.1 Weakness; Z20.822 Contact with and (suspected) exposure to COVID-19; Z79.01 Long term (current) use of anticoagulants; Z79.82 Long term (current) use of aspirin; Z79.890 Hormone replacement therapy; Z79.899 Other long term (current) drug therapy; Z88.0 Allergy status to penicillin; Z95.5 Presence of coronary angioplasty implant and graft
CPT/HCPCS: 36415; 71045; 76882; 80048; 80202; 80306; 82607; 82728; 83036; 83540; 83615; 83880; 84443; 84466; 85025; 85045; 86140; 87040; 87070; 87205; 87631; 93306; 93925; 93970; 94640; 97161; 97165; 97530; A9270; J3370; J7626; J8499; Q0162; 0202U